=== PATIENT | male | born 1980 | race Caucasian/White ===

== ENCOUNTER 2022-05-10 02:28 | Emergency (ER) | payer MEDICAID, SELFPAY ==
--- NOTE | ~2022-05-10 | CT_ITS ---
EXAMINATION: CT ABDOMEN AND PELVIS WITHOUT CONTRAST CLINICAL INFORMATION: Left flank pain COMPARISON: None TECHNIQUE: Multidetector volumetric imaging was performed from the superior aspect of the liver through the pubic symphysis. Sagittal and coronal reformatted images were obtained on the technologist's workstation. This CT examination was performed using dose optimization techniques as appropriate, variously including the following: *Automated exposure control *Adjustment of mA and/or kV according to patient size (this includes techniques or standardized protocols for targeted exams where dose is matched to indication/reason for exam; i.e. extremities or head) *Use of iterative reconstruction technique DLP: 474 mGy-cm FINDINGS: LUNG BASES: The visualized lung bases are unremarkable. LIVER, GALLBLADDER, AND BILIARY TREE: The liver is normal in size, shape, and attenuation. No biliary ductal dilatation. 0.4 cm hypoattenuating lesion in segment 6 of the liver is too small to fully characterize. The gallbladder is unremarkable with no evidence of radiopaque gallstones, gallbladder wall thickening, or obvious pericholecystic inflammatory changes. PANCREAS: Unremarkable. SPLEEN: Unremarkable. ADRENAL GLANDS: Unremarkable. KIDNEYS AND URETERS: The kidneys are normal in size, shape, and attenuation. Mild left hydroureteronephrosis. 0.3 cm distal ureteral calculus is noted approximately 0.5 cm proximal to the left ureterovesicular junction. There is a left midpole 0.4 cm calculus which is 9 cm from the posterior axillary line. 0.2 cm right lower pole calculus is 7 cm from the posterior axillary line. BLADDER: Unremarkable. GASTROINTESTINAL TRACT: The stomach is unremarkable. Normal caliber small bowel. No obstruction. No colonic wall thickening or inflammatory change. No free air or free fluid. ABDOMINAL WALL: No significant hernia is appreciated. LYMPH NODES: Normal. VASCULAR: Unremarkable. PELVIC VISCERA: The prostate and seminal vesicles are unremarkable. OSSEOUS STRUCTURES: No acute or suspicious osseous abnormality. CT/CT abdomen pelvis wo con IMPRESSION: Mild left hydroureteronephrosis with a 0.3 cm distal ureteral obstructing calculus. Additional nonobstructing bilateral renal calculi. Fleischner guidelines were followed.
[2022-05-10 02:38] VITALS: BP 132/74; PULSE 87; O2SAT 97
[2022-05-10 02:45] VITALS: BMI 26.6
--- NOTE | 2022-05-10 02:45 | ED.BACK ---
HPI - Back Pain/Injury General Chief Complaint: Abdominal Pain Stated Complaint: LEFT FLANK PAIN Time Seen by Provider: 05/10/22 02:44 Source: patient Mode of arrival: ambulatory Limitations: no limitations History of Present Illness HPI Narrative: left flank pain for one hour. patient is jumping around from the pain Related Data Previous Rx's Medication Instructions Recorded naproxen 500 mg tablet (Naprosyn) 500 mg PO BID #20 tabs 05/10/22 tamsulosin 0.4 mg capsule (Flomax) 0.4 mg PO BEDTIME #20 caps 05/10/22 Allergies Allergy/AdvReac Type Severity Reaction Status Date / Time amoxicillin [AMOXICILLIN] Allergy Unknown ANAPHYLAXIS Verified 05/10/22 02:45 morphine [Morphine] Allergy Unknown ANAPHYLAXIS Verified 05/10/22 02:45 Amoxicillin Allergy Unknown Unknown Uncoded 05/10/22 02:45 Morphine Sulfate Allergy Unknown Unknown Uncoded 05/10/22 02:45 PMFSH Social History Social History Advance Directives: No Physical Exam Vital Signs: Vital Signs: Last Vital Signs Resp 14 05/10/22 04:06 BMI result Body Mass Index 26.6 Course Reevaluation(s) Reevaluation #1: patient resting comfortably, stone still has some more to go to pass Time: 07:10 MDM - Back Pain/Injury Lab Data Result diagrams: 05/10/22 03:07 05/10/22 03:07 Labs: Lab Results 05/10/22 05/10/22 05/10/22 Range/Units 03:07 03:07 05:18 WBC 10.0 (4.8-10.8) X10*3/uL RBC 4.95 (4.60-5.80) X10*6/uL Hgb 14.7 (14.0-18.0) g/dl Hct 43.0 (42.0-52.0) % MCV 86.9 (80.0-98.0) fL MCH 29.7 (27.0-33.0) pg MCHC 34.2 (31.0-36.0) g/dl RDW 12.1 (11.0-16.0) % Plt Count 319 (160-400) X10*3/uL MPV 10.4 (9.4-12.4) fL Immature Gran % (Auto) 0.2 (0.0-0.4) % Neut % (Auto) 43.9 L (45-73) % Lymph % (Auto) 45.6 H (20-40) % [place] % (Auto) 8.3 (2-11) % Eos % (Auto) 1.7 (0-4) % Baso % (Auto) 0.3 (0-2) % Lymph # (Auto) 4.6 (1.2-4.9) X10*3/uL [place] # (Auto) 0.8 (0.1-1.2) X10*3/uL Eos # (Auto) 0.2 (0.0-0.4) X10*3/uL Baso # (Auto) 0.0 (0.0-0.2) X10*3/uL Abs Immat Gran (auto) 0.02 (0.00-0.03) X10*3/uL Absolute Neuts (auto) 4.4 (2.0-8.3) x10*3/uL Absolute Nucleated RBC 0.000 (0.0-0.012) X10*3/uL Nucleated RBC % (auto) 0.0 (0.0-0.2) /100WBC Sodium 140 (135-145) mmol/L Potassium 3.6 (3.3-5.1) mmol/L Chloride 105 (96-108) mmol/L Carbon Dioxide 25 (22-29) mmol/L Anion Gap 14 (12-20) BUN 19 H (9-16) mg/dL Creatinine 1.37 (0.5-1.4) mg/dL Estim Creat Clear Calc 60.0 Estimated GFR 58 Random Glucose 121 H (60-115) mg/dL Calcium 9.1 (8.4-10.2) mg/dL Total Bilirubin 0.6 (0.0-1.0) mg/dL AST 19 (5-37) U/L ALT 15 (0-40) U/L Alkaline Phosphatase 45 (39-117) U/L Total Protein 7.3 (6.5-8.0) g/dL Albumin 4.5 (3.5-5.0) g/dL Lipase 54 (8-78) U/L Urine Color YELLOW Urine Appearance CLEAR Urine pH 5.5 (5.0-8.0) Ur Specific [place] >= 1.030 H (1.005-1.025) Urine Protein NEG (NEG-TRACE) MG/DL Urine Glucose (UA) NEG (NEG) MG/DL Urine Ketones NEG (NEG) MG/DL Urine Blood NEG (NEG) Urine Nitrite NEG (NEG) Ur Leukocyte Esterase NEG (NEG) Imaging Data CT scan - abdomen: Radiologist's impression: IMPRESSION: Mild left hydroureteronephrosis with a 0.3 cm distal ureteral obstructing calculus. Additional nonobstructing bilateral renal calculi.? ? Fleischner guidelines were followed. Discharge Plan Discharge Clinical Impression: Calculus of kidney, Renal colic Patient Disposition: Home, Self-Care Instructions: Kidney Stones (ED), Renal Colic (ED) Additional Instructions: strain urine for stone Prescriptions: New naproxen [Naprosyn] 500 mg tablet 500 mg PO BID Qty: 20 0RF tamsulosin [Flomax] 0.4 mg capsule 0.4 mg PO BEDTIME Qty: 20 0RF Referrals: Panchito Villagomez MD [Physician] - 1 week
[2022-05-10 03:12] LABS: Basophils Percent Auto 0.3 % (0-2); Eosinophils Absolute Auto 0.2 X10*3/uL (0.0-0.4); Eosinophils Percent Auto 1.7 % (0-4); Hemoglobin 14.7 g/dl (14.0-18.0); Imm Gran Abs Auto 0.02 X10*3/uL (0.00-0.03); Imm Gran Pct Auto 0.2 % (0.0-0.4); Lymphocytes Absolute Auto 4.6 X10*3/uL (1.2-4.9); Lymphocytes Percent Auto 45.6 % (20-40); MANUAL DIFF FLAG NO; Mean Corpuscular HGB Conc 34.2 g/dl (31.0-36.0); Mean Corpuscular Hemoglobin 29.7 pg (27.0-33.0); Mean Corpuscular Volume 86.9 fL (80.0-98.0); Mean Platelet Volume 10.4 fL (9.4-12.4); Monocytes Absolute Auto 0.8 X10*3/uL (0.1-1.2); Monocytes Percent Auto 8.3 % (2-11); Neutrophils Absolute Auto 4.4 x10*3/uL (2.0-8.3); Neutrophils Percent Auto 43.9 % (45-73); Platelet Count 319 X10*3/uL (160-400); Red Blood Count 4.95 X10*6/uL (4.60-5.80); Red Cell Distribution Width 12.1 % (11.0-16.0)
[2022-05-10] MEDS: 0.9 % Sodium Chloride 1,000 ML 999 ML IVCONT ×2 (03:18→06:41)
[2022-05-10] MEDS: Ketorolac Tromethamine 30 MG/ML VIAL IVPUSH (03:18)
[2022-05-10 03:33] LABS: Alanine Aminotransferase 15 U/L (0-40); Albumin Level 4.5 g/dL (3.5-5.0); Alkaline Phosphatase 45 U/L (39-117); Anion Gap 14 (12-20); Aspartate Amino Transferase 19 U/L (5-37); Bilirubin Total 0.6 mg/dL (0.0-1.0); Blood Urea Nitrogen 19 mg/dL (9-16); Calcium 9.1 mg/dL (8.4-10.2); Carbon Dioxide 25 mmol/L (22-29); Chloride 105 mmol/L (96-108); Estimated Glomerular Filt Rate 58; Glucose Random 121 mg/dL (60-115); Lipase 54 U/L (8-78); Potassium 3.6 mmol/L (3.3-5.1); Sodium 140 mmol/L (135-145); Total Protein 7.3 g/dL (6.5-8.0)
[2022-05-10 04:06] VITALS: RESP 14
[2022-05-10] MEDS: HYDROmorphone HCl 1 MG/ML SYRINGE IVPUSH (04:06)
[2022-05-10] MEDS: Tamsulosin HCL 0.4 MG CAPSULE PO (04:06)
[2022-05-10 05:23] LABS: Appearance Urine CLEAR; Color Urine YELLOW; Glucose Urine UA NEG (NEG); Leukocyte Esterase Urine NEG (NEG); Nitrite Urine NEG (NEG); PH 5.5 (5.0-8.0); Specific Gravity - Urine >= 1.030 (1.005-1.025); Urine Blood NEG (NEG); Urine Ketones NEG (NEG); Urine Protein NEG (NEG-TRACE)
== END 2022-05-10 07:28 | disposition home or self-care (01) ==
PROVIDERS: Emergency Provider Emergency Medicine
DX: N13.2 Hydronephrosis with renal and ureteral calculous obstruction (principal)
CPT/HCPCS: 36415; 74176; 80053; 81003; 83690; 85025; 96361; 96374; 96375; 99283; 99284; J1170; J1885

== ENCOUNTER 2022-09-07 12:18 | Emergency (ER) | payer OTHER, SELFPAY ==
[2022-09-07 12:25] VITALS: BP 126/79; PULSE 61; RESP 16; TEMP 36.1; O2SAT 98; BMI 25.7
[2022-09-07 12:41] LABS: MANUAL DIFF FLAG NO
[2022-09-07 12:43] LABS: Basophils Percent Auto 0.4 % (0-2); Eosinophils Absolute Auto 0.1 X10*3/uL (0.0-0.4); Hemoglobin 14.5 g/dl (14.0-18.0); Imm Gran Abs Auto 0.01 X10*3/uL (0.00-0.03); Imm Gran Pct Auto 0.1 % (0.0-0.4); Lymphocytes Absolute Auto 2.5 X10*3/uL (1.2-4.9); Lymphocytes Percent Auto 34.5 % (20-40); Mean Corpuscular Hemoglobin 29.2 pg (27.0-33.0); Mean Corpuscular Volume 88.5 fL (80.0-98.0); Mean Platelet Volume 10.3 fL (9.4-12.4); Monocytes Absolute Auto 0.6 X10*3/uL (0.1-1.2); Monocytes Percent Auto 7.7 % (2-11); Neutrophils Percent Auto 56.3 % (45-73); Platelet Count 276 X10*3/uL (160-400); Red Blood Count 4.97 X10*6/uL (4.60-5.80); Red Cell Distribution Width 12.3 % (11.0-16.0); White Blood Count 7.2 X10*3/uL (4.8-10.8)
[2022-09-07 13:00] LABS: Alanine Aminotransferase 24 U/L (0-40); Albumin Level 4.5 g/dL (3.5-5.0); Alkaline Phosphatase 40 U/L (39-117); Anion Gap 16 (12-20); Aspartate Amino Transferase 23 U/L (5-37); Bilirubin Direct 0.2 mg/dL (0.0-0.5); Bilirubin Total 0.2 mg/dL (0.0-1.0); Blood Urea Nitrogen 14 mg/dL (9-16); Calcium 9.4 mg/dL (8.4-10.2); Carbon Dioxide 25 mmol/L (22-29); Chloride 104 mmol/L (96-108); Creatinine Clr Calc Pharmacy 76.1; Estimated Glomerular Filt Rate > 60; Glucose Random 83 mg/dL (60-115); Sodium 141 mmol/L (135-145); Total Protein 7.3 g/dL (6.5-8.0)
--- NOTE | 2022-09-07 16:04 | ED_ITS ---
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 Reports poking patient and then accidentally poking himself, drawing blood. Admits to washing the area immediately with alcohol and soap/water. States he is up-to-date on his vaccinations. Denies fever, chills, pain Onset (ago): minute(s) Related Data Previous Rx's Medication Instructions Recorded naproxen 500 mg tablet (Naprosyn) 500 mg PO BID #20 tabs 05/10/22 tamsulosin 0.4 mg capsule (Flomax) 0.4 mg PO BEDTIME #20 caps 05/10/22 prednisone 20 mg tablet 20 mg PO DAILY 5 days #5 tabs 05/11/22 Allergies Allergy/AdvReac Type Severity Reaction Status Date / Time amoxicillin [AMOXICILLIN] Allergy Unknown ANAPHYLAXIS Verified 09/07/22 12:31 morphine [Morphine] Allergy Unknown ANAPHYLAXIS Verified 09/07/22 12:31 Amoxicillin Allergy Unknown Unknown Uncoded 05/10/22 02:45 Morphine Sulfate Allergy Unknown Unknown Uncoded 05/10/22 02:45 Review of Systems Review of Systems: Constitutional: No Fever, No Chills ENT/Mouth: No Ear Pain, No Nasal Congestion, No sore throat, No Rhinorrhea, No Swallowing Difficulty Cardiovascular: No Chest Pain, No SOB Respiratory: No Cough, No Sputum, No Wheezing Gastrointestinal: No Nausea, No Vomiting, No Diarrhea, No Constipation, No Abdominal pain Genitourinary: No Dysuria, No Urinary Frequency, No Hematuria Musculoskeletal: No joint pain, No Myalgias, No Joint Swelling Skin: No Skin Lesions, No rash Neuro: No Weakness, No Numbness, No Paresthesias Yes all other systems are reviewed and are negative Constitutional: Constitutional: Reports as per [facility] Past Medical History Attestation statement: The following information was validated with the patient. Social History Social History Advance Directives: No Physical Exam ED Vital Signs: Vital Signs - 24 hr 09/07/22 12:25 Temperature 97 F Pulse Rate 61 Respiratory Rate 16 Blood Pressure 126/79 Pulse Oximetry 98 Oxygen Delivery Method Room Air BMI result Body Mass Index 25.7 Const General: cooperative, healthy appearing and no acute distress Orientation/consciousness: patient oriented x3 Limitations: no limitations HENMT Head: Yes normal to inspection and Yes atraumatic Ears: hearing grossly normal bilaterally General nose exam: Normal external nose present Face and sinus: Yes normal facial exam Eyes General: appearance normal, both eyes and all related structures EOM: EOMs intact bilaterally Neck Neck: Yes normal visual inspection and Yes no meningeal signs Resp Effort & Inspection: normal respiratory effort and no respiratory distress Auscultation: clear to auscultation bilaterally Cardio Rate: regular rate Heart sounds: S1 normal heart sound present and S2 normal heart sound present GI Inspection: Yes normal to inspection Skin Rashes: no rashes Wounds: no wounds Neuro General: patient oriented x3, tone normal and no meningeal signs Gait exam (Neuro): Normal gait present Extrem General: Yes normal to inspection Medical Decision Making MDM Narrative Medical decision making narrative: 42yo male with no sig PMHx presenting to the ED c/o 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 On exam vital signs stable, NAD, nontoxic appearing. Unknown medical history/risk factors of patient. Will obtain labs on both patients. This patient agreeable/interested in starting PEP Plan: Labs, PEP kit Medical Records Medical records reviewed: Yes I reviewed the patient's medical records. Lab Data Lab results reviewed: Yes I reviewed the patient's lab results. Result diagrams: 09/07/22 12:38 09/07/22 12:38 Labs: Lab Results 09/07/22 09/07/22 Range/Units 12:38 12:38 WBC 7.2 (4.8-10.8) X10*3/uL RBC 4.97 (4.60-5.80) X10*6/uL Hgb 14.5 (14.0-18.0) g/dl Hct 44.0 (42.0-52.0) % MCV 88.5 (80.0-98.0) fL MCH 29.2 (27.0-33.0) pg MCHC 33.0 (31.0-36.0) g/dl RDW 12.3 (11.0-16.0) % Plt Count 276 (160-400) X10*3/uL MPV 10.3 (9.4-12.4) fL Immature Gran % (Auto) 0.1 (0.0-0.4) % Neut % (Auto) 56.3 (45-73) % Lymph % (Auto) 34.5 (20-40) % [place] % (Auto) 7.7 (2-11) % Eos % (Auto) 1.0 (0-4) % Baso % (Auto) 0.4 (0-2) % Lymph # (Auto) 2.5 (1.2-4.9) X10*3/uL [place] # (Auto) 0.6 (0.1-1.2) X10*3/uL Eos # (Auto) 0.1 (0.0-0.4) X10*3/uL Baso # (Auto) 0.0 (0.0-0.2) X10*3/uL Abs Immat Gran (auto) 0.01 (0.00-0.03) X10*3/uL Absolute Neuts (auto) 4.0 (2.0-8.3) x10*3/uL Absolute Nucleated RBC 0.000 (0.0-0.012) X10*3/uL Nucleated RBC % (auto) 0.0 (0.0-0.2) /100WBC Sodium 141 (135-145) mmol/L Potassium 4.0 (3.3-5.1) mmol/L Chloride 104 (96-108) mmol/L Carbon Dioxide 25 (22-29) mmol/L Anion Gap 16 (12-20) BUN 14 (9-16) mg/dL Creatinine 1.08 (0.5-1.4) mg/dL Estim Creat Clear Calc 76.1 Estimated GFR > 60 Random Glucose 83 (60-115) mg/dL Calcium 9.4 (8.4-10.2) mg/dL Total Bilirubin 0.2 (0.0-1.0) mg/dL Direct Bilirubin 0.2 (0.0-0.5) mg/dL AST 23 (5-37) U/L ALT 24 (0-40) U/L Alkaline Phosphatase 40 (39-117) U/L Total Protein 7.3 (6.5-8.0) g/dL Albumin 4.5 (3.5-5.0) g/dL Discharge Plan Discharge Clinical Impression: Needlestick injury accident Patient Disposition: Home, Self-Care Instructions: Needle Stick Injuries (ED) Additional Instructions: Initiate post exposure prophylaxis. This may cause some GI upset. Please have close follow-up with [facility] Prescriptions: No Action prednisone 20 mg tablet 20 mg PO DAILY 5 Days Qty: 5 0RF naproxen [Naprosyn] 500 mg tablet 500 mg PO BID Qty: 20 0RF tamsulosin [Flomax] 0.4 mg capsule 0.4 mg PO BEDTIME Qty: 20 0RF Referrals: [facility] [Outside]
[2022-09-08 07:52] LABS: HBc Num1 0.06 S/CO (0.00-0.79); HBsAGNum1 0.21 S/CO (0.00-0.99); HIV AB/AG Nonreactive (Nonreactive); HIV Num 1 0.09 S/CO (0.00-0.99); Hepatitis B Core Antibody Nonreactive (Nonreactive); Hepatitis B Surface Antigen Negative (Negative); ~HepC Num1 0.11 S/CO (0.00-0.79); ~Hepatitis B Surface Antibody REACTIVE (Nonreactive); ~Hepatitis C Antibody Nonreactive (Nonreactive)
== END 2022-09-07 17:49 | disposition home or self-care (01) ==
PROVIDERS: Physician Assistant; Emergency Provider Emergency Medicine
DX: Z20.9 Contact with and (suspected) exposure to unspecified communicable disease (principal); Z79.899 Other long term (current) drug therapy
CPT/HCPCS: 36415; 80048; 80076; 85025; 86704; 86706; 86803; 87340; 87389; 99282; 99283

== ENCOUNTER → 2022-09-08 08:43 | Outpatient (BNVA) | payer OTHER, SELFPAY | PROVIDERS: Visit Provider Physician Assistant Medical | DX: Z13.89 Encounter for screening for other disorder (principal) | CPT/HCPCS: 99203 ==

== ENCOUNTER 2022-11-08 08:55 | Outpatient (REF) | payer OTHER, SELFPAY ==
[2022-11-08 07:38] VITALS: BP 122/79; PULSE 68; RESP 18; TEMP 36.4; O2SAT 98; BMI 27.4
[2022-11-08 07:47] LABS: Influenza A PCR NEGATIVE (Negative); Influenza B PCR NEGATIVE (Negative); Resp Syncy Virus RNA Qual PCR NEGATIVE (Negative); SARS COV2 PCR INHOUSE NEGATIVE (Negative)
== END 2022-11-08 08:56 | disposition home or self-care (01) ==
LOC: HO.LAB 08:55
PROVIDERS: Visit Provider Internal Medicine
DX: Z20.822 Contact with and (suspected) exposure to COVID-19 (principal)
CPT/HCPCS: 0241U

== ENCOUNTER 2023-01-26 17:58 | Inpatient (IN) | payer MEDICAID, SELFPAY ==
--- NOTE | ~2023-01-26 | CT_ITS ---
EXAMINATION: CT ABDOMEN AND PELVIS WITHOUT CONTRAST CLINICAL INFORMATION: Bilateral flank pain. History of kidney stones COMPARISON: CT abdomen and pelvis without contrast 05/02/2022 TECHNIQUE: Multidetector volumetric imaging was performed from the superior aspect of the liver through the pubic symphysis. Sagittal and coronal reformatted images were obtained on the technologist's workstation. This CT examination was performed using dose optimization techniques as appropriate, variously including the following: *Automated exposure control *Adjustment of mA and/or kV according to patient size (this includes techniques or standardized protocols for targeted exams where dose is matched to indication/reason for exam; i.e. extremities or head) *Use of iterative reconstruction technique DLP: 446 mGy-cm FINDINGS: LUNG BASES: The lung bases are clear. Heart size is normal. LIVER, GALLBLADDER, AND BILIARY TREE: The liver is normal in size, shape, and attenuation. No focal hepatic lesion or biliary ductal dilatation is present. The gallbladder is unremarkable with no evidence of radiopaque gallstones, gallbladder wall thickening, or obvious pericholecystic inflammatory changes. PANCREAS: Unremarkable. SPLEEN: Unremarkable. ADRENAL GLANDS: Unremarkable. KIDNEYS AND URETERS: The kidneys are normal in size, shape, and attenuation. There are bilateral small radiopaque renal calculi. There is a 4 mm radiopaque calculi mid pole left kidney, the largest. No caliectasis or hydronephrosis seen BLADDER: Unremarkable. GASTROINTESTINAL TRACT: There is scattered stool and gas seen throughout the colon without distention. The small bowel loops are normal caliber. Appendix is normal caliber. However there is mild fat stranding seen surrounding the appendix the tip measuring 1.1 cm. The stomach is nondistended and appears unremarkable. ABDOMINAL WALL: No significant hernia is appreciated. LYMPH NODES: Normal. VASCULAR: Unremarkable. PELVIC VISCERA: Unremarkable. OSSEOUS STRUCTURES: There is no aggressive lytic or sclerotic process seen. The paravertebral soft tissues are normal. CT/CT abdomen pelvis wo IV con IMPRESSION: 1. Bilateral nonobstructive radiopaque renal calculi. No caliectasis or hydronephrosis seen. The largest in the midpole left kidney measuring 4 mm. 2. There is mild fat stranding seen surrounding the tip of the appendix. The tip of the appendix measures 1.1 cm. No phleboliths seen.. Question early appendicitis. Correlate with clinical exam. 3. Mild constipation. Fleischner guidelines were followed.
[2023-01-26 18:11] VITALS: BP 144/72; PULSE 75; RESP 18; TEMP 36.5; O2SAT 100; BMI 26.6
--- NOTE | 2023-01-26 18:26 | ED.ABDPAIN ---
HPI - Abdominal Pain General Chief Complaint: Abdominal Pain Stated Complaint: abdominal pain Time Seen by Provider: 01/26/23 18:21 Source: patient Mode of arrival: ambulatory Limitations: no limitations History of Present Illness HPI narrative: Patient comes to the emergency room complaining of bilateral lower quadrant pain and bilateral flank pain. Patient states that started earlier today when he was working. Patient states he has kidney stone history and it feels like he is passing stones again. Patient complaining of nausea, vomiting, no diarrhea, complaining of intense bilateral flank pain. No fever or chills. Related Data Previous Rx's Medication Instructions Recorded naproxen 500 mg tablet (Naprosyn) 500 mg PO BID #20 tabs 05/10/22 tamsulosin 0.4 mg capsule (Flomax) 0.4 mg PO BEDTIME #20 caps 05/10/22 prednisone 20 mg tablet 20 mg PO DAILY 5 days #5 tabs 05/11/22 Allergies Allergy/AdvReac Type Severity Reaction Status Date / Time amoxicillin [AMOXICILLIN] Allergy Unknown ANAPHYLAXIS Verified 09/07/22 12:31 morphine [Morphine] Allergy Unknown ANAPHYLAXIS Verified 09/07/22 12:31 Amoxicillin Allergy Unknown Unknown Uncoded 05/10/22 02:45 Morphine Sulfate Allergy Unknown Unknown Uncoded 05/10/22 02:45 Review of Systems Review of Systems Constitutional : No Weight loss, No Fever, No Chills, No Night Sweats, No Fatigue, No Malaise ENT/Mouth : No Hearing loss, No Ear Pain, No Nasal Congestion, No Sinus Pain, No Hoarseness, No sore throat, No Rhinorrhea, No Swallowing Difficulty Eyes: No Eye Pain, No Swelling, No Redness, No Foreign Body, No Discharge, No Vision Changes Cardiovascular : No Chest Pain, No SOB, No Dyspnea on Exertion, No Orthopnea, No Edema, No Palpitations Respiratory : No Cough, No Sputum, No Wheezing, No Smoke Exposure, No Dyspnea Gastrointestinal : Complaining of nausea vomiting No Diarrhea, No Constipation, No abdominal Pain, No Hematochezia, No Melena Genitourinary : no irregular bleeding, No Dysuria, No Urinary Frequency, No Hematuria, No Urinary Incontinence, No Urgency, complaining of bilateral Flank Pain, No Urinary Flow Changes, No Hesitancy Musculoskeletal : No joint pain, No Myalgias, No Joint Swelling Skin : No Skin Lesions, No rash Neuro : No Weakness, No Numbness, No Paresthesias, No Loss of Consciousness, No Dizziness, No Headache Psych : No Anxiety/Panic, No Depression, No SI/HI/AH/VH, No Social Issues, Heme/Lymph: No Bruising, No Bleeding,No Lymphadenopathy Endocrine : No Polyuria, No Polydipsia, No Temperature Intolerance [facility] Past Medical History Medical History (Updated 01/26/23 @ 20:56 by Jojo Horner MD) Kidney stones Social History Social History Alcohol intake: never Smoked in Last 30 Days: No Use of substances other than those prescribed or required for medical reasons: No Advance Directives: No Advance Directives Information Provided: No Physical Exam ED Vital Signs: Vital Signs - 24 hr 01/26/23 18:11 Temperature 97.7 F Pulse Rate 75 Respiratory Rate 18 Blood Pressure 144/72 H Pulse Oximetry 100 Oxygen Delivery Method Room Air BMI result Body Mass Index 26.6 Const Other: Appearance: Alert. Oriented X3. Prep patient of pain, pacing around the room, unable to get comfortable Eyes: Pupils equal, round and reactive to light. ENT: Pharynx normal. Neck: Normal inspection. Neck supple. No lymph nodes noted. No crepitus CVS: Normal heart rate and rhythm. Pulses normal. Normal S1 and S2 Respiratory: No respiratory distress. Breath sounds normal. No Wheezing. No rales Abdomen: Soft , tenderness to palpation mildly on the left lower quadrant but more significantly in the periumbilical area and right lower quadrant at the McBurney's point Skin: Skin warm and dry. Normal skin color. Normal skin turgor. Extremities: No lower extremity edema. No Lacerations. No Rash Neuro: Oriented X 3. No motor deficit. No sensory deficit. Moving all extremities. No slurred speech. CN 2 through 12 grossly intact Psych: calm, cooperative, normal affect Course Course Course Narrative: -patient started on IV fluids, ketorolac and Zofran. -labs and CT scan pending. -appendicitis versus nephrolithiasis suspected Medical Decision Making Medical Decision Making MDM Narrative: -patient's white blood cell count is 17. -CT scan of the abdomen shows the tip of the appendix measures 1.1 cm. Physical exam is consistent with acute appendicitis. -patient was given IV fluids, Toradol, Dilaudid, and from antibiotics patient was given metronidazole and levofloxacin as patient has anaphylactic reaction to penicillins. -discussed the patient with Dr. Carcamo, pt being admitted Differential Diagnosis Differential Diagnoses: The differential diagnosis associated with the presentation includes (Nephrolithiasis, appendicitis) Admission/Observation Consideration of admission/observation: Escalation of care including admission/observation considered Consult Healthcare Provider Management of the patient was discussed with: Ring Attacher Lab Data 01/26/23 19:33 01/26/23 19:33 Labs: Lab Results 01/26/23 01/26/23 01/26/23 Range/Units 19:33 19:33 19:33 WBC 17.0 H (4.8-10.8) X10*3/uL RBC 5.01 (4.60-5.80) X10*6/uL Hgb 14.8 (14.0-18.0) g/dl Hct 42.5 (42.0-52.0) % MCV 84.8 (80.0-98.0) fL MCH 29.5 (27.0-33.0) pg MCHC 34.8 (31.0-36.0) g/dl RDW 11.9 (11.0-16.0) % Plt Count 291 (160-400) X10*3/uL MPV 10.5 (9.4-12.4) fL Immature Gran % (Auto) 0.3 (0.0-0.4) % Neut % (Auto) 86.2 H (45-73) % Lymph % (Auto) 8.0 L (20-40) % [place] % (Auto) 5.2 (2-11) % Eos % (Auto) 0.1 (0-4) % Baso % (Auto) 0.2 (0-2) % Lymph # (Auto) 1.4 (1.2-4.9) X10*3/uL [place] # (Auto) 0.9 (0.1-1.2) X10*3/uL Eos # (Auto) 0.0 (0.0-0.4) X10*3/uL Baso # (Auto) 0.0 (0.0-0.2) X10*3/uL Abs Immat Gran (auto) 0.05 H (0.00-0.03) X10*3/uL Absolute Neuts (auto) 14.7 H (2.0-8.3) x10*3/uL Absolute Nucleated RBC 0.000 (0.0-0.012) X10*3/uL Nucleated RBC % (auto) 0.0 (0.0-0.2) /100WBC Sodium 137 (135-145) mmol/L Potassium 3.7 (3.3-5.1) mmol/L Chloride 106 (96-108) mmol/L Carbon Dioxide 21 L (22-29) mmol/L Anion Gap 14 (12-20) BUN 15 (9-16) mg/dL Creatinine 1.25 (0.5-1.4) mg/dL Estim Creat Clear Calc 67.6 Estimated GFR > 60 Random Glucose 107 (60-115) mg/dL Calcium 9.4 (8.4-10.2) mg/dL Total Bilirubin 0.8 (0.0-1.0) mg/dL Direct Bilirubin 0.2 (0.0-0.5) mg/dL AST 20 (5-37) U/L ALT 20 (0-40) U/L Alkaline Phosphatase 42 (39-117) U/L Troponin I High Sens < 3.5 (<3.5-35.0) ng/L Total Protein 6.8 (6.5-8.0) g/dL Albumin 4.3 (3.5-5.0) g/dL Lipase 24 (8-78) U/L Urine Color Urine Appearance Urine pH (5.0-9.0) Ur Specific [place] (1.005-1.025) Urine Protein (Neg-Trace) mg/dL Urine Glucose (UA) (Negative) mg/dL Urine Ketones (Negative) mg/dL Urine Blood (Negative) Urine Nitrite (Negative) Ur Leukocyte Esterase (Negative) 01/26/23 Range/Units 19:37 WBC (4.8-10.8) X10*3/uL RBC (4.60-5.80) X10*6/uL Hgb (14.0-18.0) g/dl Hct (42.0-52.0) % MCV (80.0-98.0) fL MCH (27.0-33.0) pg MCHC (31.0-36.0) g/dl RDW (11.0-16.0) % Plt Count (160-400) X10*3/uL MPV (9.4-12.4) fL Immature Gran % (Auto) (0.0-0.4) % Neut % (Auto) (45-73) % Lymph % (Auto) (20-40) % [place] % (Auto) (2-11) % Eos % (Auto) (0-4) % Baso % (Auto) (0-2) % Lymph # (Auto) (1.2-4.9) X10*3/uL [place] # (Auto) (0.1-1.2) X10*3/uL Eos # (Auto) (0.0-0.4) X10*3/uL Baso # (Auto) (0.0-0.2) X10*3/uL Abs Immat Gran (auto) (0.00-0.03) X10*3/uL Absolute Neuts (auto) (2.0-8.3) x10*3/uL Absolute Nucleated RBC (0.0-0.012) X10*3/uL Nucleated RBC % (auto) (0.0-0.2) /100WBC Sodium (135-145) mmol/L Potassium (3.3-5.1) mmol/L Chloride (96-108) mmol/L Carbon Dioxide (22-29) mmol/L Anion Gap (12-20) BUN (9-16) mg/dL Creatinine (0.5-1.4) mg/dL Estim Creat Clear Calc Estimated GFR Random Glucose (60-115) mg/dL Calcium (8.4-10.2) mg/dL Total Bilirubin (0.0-1.0) mg/dL Direct Bilirubin (0.0-0.5) mg/dL AST (5-37) U/L ALT (0-40) U/L Alkaline Phosphatase (39-117) U/L Troponin I High Sens (<3.5-35.0) ng/L Total Protein (6.5-8.0) g/dL Albumin (3.5-5.0) g/dL Lipase (8-78) U/L Urine Color Yellow Urine Appearance Clear Urine pH 8.5 (5.0-9.0) Ur Specific [place] 1.020 (1.005-1.025) Urine Protein Trace (Neg-Trace) mg/dL Urine Glucose (UA) Negative (Negative) mg/dL Urine Ketones 15 (Negative) mg/dL Urine Blood Negative (Negative) Urine Nitrite Negative (Negative) Ur Leukocyte Esterase Negative (Negative) Independent Interpretation I performed an independent interpretation of an: CT Scan Interpretation: My interpretation of abdominal/pelvis CT scan: Possible appendicitis, there seems to be inflammation around the appendix Radiology Impression Discussion of test interpretation with radiology: I have reviewed the radiologist's reading. Radiologist Impression: FINDINGS: LUNG BASES: The lung bases are clear. Heart size is normal.? LIVER, GALLBLADDER, AND BILIARY TREE: The liver is normal in size, shape, and attenuation. No focal hepatic lesion or biliary ductal dilatation is present. The gallbladder is unremarkable with no evidence of radiopaque gallstones, gallbladder wall thickening, or obvious pericholecystic inflammatory changes.? PANCREAS: Unremarkable.? SPLEEN: Unremarkable.? ADRENAL GLANDS: Unremarkable.? KIDNEYS AND URETERS: The kidneys are normal in size, shape, and attenuation. There are bilateral small radiopaque renal calculi. There is a 4 mm radiopaque calculi mid pole left kidney, the largest. No caliectasis or hydronephrosis seen? BLADDER: Unremarkable.? GASTROINTESTINAL TRACT: There is scattered stool and gas seen throughout the colon without distention. The small bowel loops are normal caliber. Appendix is normal caliber. However there is mild fat stranding seen surrounding the appendix the tip measuring 1.1 cm. The stomach is nondistended and appears unremarkable.? ABDOMINAL WALL: No significant hernia is appreciated.? LYMPH NODES: Normal. VASCULAR: Unremarkable. PELVIC VISCERA: Unremarkable.? OSSEOUS STRUCTURES: There is no aggressive lytic or sclerotic process seen. The paravertebral soft tissues are normal.? CT/CT abdomen pelvis wo IV con IMPRESSION: 1.? Bilateral nonobstructive radiopaque renal calculi. No caliectasis or hydronephrosis seen. The largest in the midpole left kidney measuring 4 mm. 2.? There is mild fat stranding seen surrounding the tip of the appendix. The tip of the appendix measures 1.1 cm. No phleboliths seen.. Question early appendicitis. Correlate with clinical exam. 3.? Mild constipation. ? Fleischner guidelines were followed. Medications Administered Discontinued Medications Generic Name Dose Route Start Last Admin Trade Name Freq PRN Reason Stop Dose Admin Hydromorphone HCl 1 mg 01/26/23 19:29 01/26/23 19:35 Hydromorphone Hcl 1 Mg/Ml Syringe IVPUSH 01/26/23 19:30 1 mg ONCE ONE Administration Protocol Sodium Chloride 1,000 mls @ 999 mls/hr 01/26/23 18:24 01/26/23 20:51 Ns IVCONT 01/26/23 19:24 Infused .Q1H1M ONE Infusion Ketorolac Tromethamine 30 mg 01/26/23 18:24 01/26/23 18:29 Ketorolac Tromethamine 30 Mg/Ml Vial IVPUSH 01/26/23 18:25 30 mg ONCE ONE Administration Ondansetron HCl 4 mg 01/26/23 18:24 01/26/23 18:29 Ondansetron Hcl 4 Mg/2 Ml Vial IVPUSH 01/26/23 18:25 4 mg ONCE ONE Administration Critical Care Time Critical Care Time Critical Care Time: Yes Total Critical Care Time: 45 Attestation: I have personally provided critical care time. Time includes review of lab data, radiology results, discussion with consultants, and monitoring for potential decompensation. Intervention performed as documented. Discharge Plan Discharge Clinical Impression: Acute appendicitis Patient Disposition: Admitted As Inpatient
[2023-01-26] MEDS: ondansetron HCL 4 MG/2 ML VIAL IVPUSH (18:29)
[2023-01-26] MEDS: Ketorolac Tromethamine 30 MG/ML VIAL IVPUSH ×2 (18:29→23:34)
[2023-01-26] MEDS: 0.9 % Sodium Chloride 1,000 ML 999 ML IVCONT (18:30)
--- NOTE | 2023-01-26 18:31 | PC.NURSE ---
Patient is 10/10 pain that started this afternoon while patient was at work. Patient curled in a ball with emesis bag. Provider made aware of situation and orders for fluids and medications obtained.
[2023-01-26] MEDS: HYDROmorphone HCl 1 MG/ML SYRINGE IVPUSH (19:35)
[2023-01-26 19:42] LABS: MANUAL DIFF FLAG NO
[2023-01-26 19:44] LABS: Appearance Urine Clear; Color Urine Yellow; Glucose Urine UA Negative (Negative); Leukocyte Esterase Urine Negative (Negative); Nitrite Urine Negative (Negative); PH 8.5 (5.0-9.0); Urine Blood Negative (Negative); Urine Ketones 15 mg/dL (Negative); Urine Protein Trace mg/dL (Neg-Trace)
[2023-01-26 19:44] LABS: Basophils Percent Auto 0.2 % (0-2); Eosinophils Percent Auto 0.1 % (0-4); Hematocrit 42.5 % (42.0-52.0); Hemoglobin 14.8 g/dl (14.0-18.0); Imm Gran Abs Auto 0.05 X10*3/uL (0.00-0.03); Imm Gran Pct Auto 0.3 % (0.0-0.4); Lymphocytes Absolute Auto 1.4 X10*3/uL (1.2-4.9); Mean Corpuscular HGB Conc 34.8 g/dl (31.0-36.0); Mean Corpuscular Hemoglobin 29.5 pg (27.0-33.0); Mean Corpuscular Volume 84.8 fL (80.0-98.0); Mean Platelet Volume 10.5 fL (9.4-12.4); Monocytes Absolute Auto 0.9 X10*3/uL (0.1-1.2); Monocytes Percent Auto 5.2 % (2-11); Neutrophils Absolute Auto 14.7 x10*3/uL (2.0-8.3); Neutrophils Percent Auto 86.2 % (45-73); Platelet Count 291 X10*3/uL (160-400); Red Blood Count 5.01 X10*6/uL (4.60-5.80); Red Cell Distribution Width 11.9 % (11.0-16.0)
[2023-01-26 20:05] LABS: Alanine Aminotransferase 20 U/L (0-40); Albumin Level 4.3 g/dL (3.5-5.0); Alkaline Phosphatase 42 U/L (39-117); Anion Gap 14 (12-20); Aspartate Amino Transferase 20 U/L (5-37); Bilirubin Direct 0.2 mg/dL (0.0-0.5); Bilirubin Total 0.8 mg/dL (0.0-1.0); Blood Urea Nitrogen 15 mg/dL (9-16); Calcium 9.4 mg/dL (8.4-10.2); Carbon Dioxide 21 mmol/L (22-29); Chloride 106 mmol/L (96-108); Creatinine Clr Calc Pharmacy 67.6; Estimated Glomerular Filt Rate > 60; Glucose Random 107 mg/dL (60-115); Lipase 24 U/L (8-78); Potassium 3.7 mmol/L (3.3-5.1); Sodium 137 mmol/L (135-145); Total Protein 6.8 g/dL (6.5-8.0)
[2023-01-26 20:21] LABS: Troponin-I High Sensitivity < 3.5 ng/L (<3.5-35.0)
[2023-01-26] MEDS: levoFLOXacin/D5W 500 MG/100 ML PIGGYBACK 100 MG IV (21:18)
[2023-01-26 21:32] VITALS: BP 100/55; PULSE 70; RESP 16; TEMP 36.7; O2SAT 94
--- NOTE | 2023-01-26 21:36 | PHA.MEDREC ---
Pharmacy Consult ? Medication Reconciliation Pharmacy has completed the medication reconciliation.
[2023-01-26] MEDS: metroNIDAZOLE/NS 500 MG/100 ML PIGGYBACK 100 MG IV (22:01)
--- NOTE | 2023-01-26 22:40 | MHC.CM.PN ---
CM met with admitted patient with bed assignment pending. Independent. Employed [employer] [facility] [place]. Lives w S.O/children. No DME/services. No PCP. HCP reviewed, completed and signed. Copies given. Uploaded into [employer] and [employer] [facility] [place] [employer]. HCP/S.O Tod Gonzales ([phone]). D/C plan: Home without services. Pt to arrange transport. CM will follow for discharge needs.
[2023-01-26] MEDS: Dextrose 5 % and 0.9 % NaCl 1,000 ML 100 ML IVCONT (23:35)
[2023-01-27] VITALS (11 sets, daily range): BP systolic 96–131; BP diastolic 57–74; PULSE 58–75; RESP 14–20; TEMP 36.3–37.1; O2SAT 90–100; BMI 28.7
[2023-01-27 00:14] LABS: COVID-19 Test Negative (Negative); IDNOW Serial# 55D5AD1C
--- NOTE | 2023-01-27 00:52 | PC.NURSE ---
attempted to call report to medical cost consultant x 1 @00:53
--- NOTE | 2023-01-27 01:16 | PC.NURSE ---
report called to medical and health services manager
--- NOTE | 2023-01-27 02:09 | MHC.PIE ---
p; pt coming from ed with early appendicitis and 4mm lt kidney stone mid pole. ed reported dilaudid 1 mg iv for pain with great result. note; pt has prn toladole q6 given in ed at 2330, no dilaudid ordered prn. note; pt has no diet ordered NPO? i; dr fritz notified; hold off on narcotics until formally examined in morning. new order diet NPO p; pt arrived from ed, abd/flank pain 7/10 and getting worst. i; dr fritz notified numerous times. new order dilaudid 1mg iv now e; will cont to monitor
[2023-01-27] MEDS: HYDROmorphone HCl 1 MG/ML SYRINGE IVPUSH (02:23)
[2023-01-27 06:28] LABS: MANUAL DIFF FLAG NO
[2023-01-27 06:36] LABS: Basophils Percent Auto 0.2 % (0-2); Eosinophils Absolute Auto 0.1 X10*3/uL (0.0-0.4); Eosinophils Percent Auto 0.5 % (0-4); Hematocrit 39.6 % (42.0-52.0); Hemoglobin 13.1 g/dl (14.0-18.0); Imm Gran Abs Auto 0.03 X10*3/uL (0.00-0.03); Imm Gran Pct Auto 0.3 % (0.0-0.4); Lymphocytes Absolute Auto 2.5 X10*3/uL (1.2-4.9); Mean Corpuscular HGB Conc 33.1 g/dl (31.0-36.0); Mean Corpuscular Hemoglobin 29.4 pg (27.0-33.0); Mean Corpuscular Volume 88.8 fL (80.0-98.0); Mean Platelet Volume 11.1 fL (9.4-12.4); Monocytes Absolute Auto 0.9 X10*3/uL (0.1-1.2); Monocytes Percent Auto 9.4 % (2-11); Neutrophils Absolute Auto 6.4 x10*3/uL (2.0-8.3); Neutrophils Percent Auto 64.6 % (45-73); Platelet Count 237 X10*3/uL (160-400); Red Blood Count 4.46 X10*6/uL (4.60-5.80); Red Cell Distribution Width 12.2 % (11.0-16.0); White Blood Count 9.9 X10*3/uL (4.8-10.8)
[2023-01-27 06:56] LABS: Blood Urea Nitrogen 13 mg/dL (9-16); Calcium 8.5 mg/dL (8.4-10.2); Creatinine Clr Calc Pharmacy 82.2; Estimated Glomerular Filt Rate > 60; Glucose Random 90 mg/dL (60-115)
[2023-01-27 07:11] LABS: Anion Gap 11 (12-20); Carbon Dioxide 27 mmol/L (22-29); Chloride 105 mmol/L (96-108); Potassium 4.1 mmol/L (3.3-5.1); Sodium 139 mmol/L (135-145)
[2023-01-27] MEDS: Ketorolac Tromethamine 30 MG/ML VIAL IVPUSH (07:35)
--- NOTE | 2023-01-27 08:34 | PM.HPGS ---
History of Present Illness History of Present Illness Date of Service: 01/27/23 Chief complaint: Abdominal pain Narrative: Dar Moore is a 43 year old male Who presents with approximately 1 day history of progressively worsening abdominal pain. Is rather nonspecific in nature involving bilateral flanks and lower abdomen. Patient has a history of kidney stones initially felt that his symptoms were a recurrence of the kidney stones. Patient had a CT scan of the abdomen which demonstrated cholelithiasis and a question of early appendicitis. Because of the unclear nature of the patient's symptoms, he was admitted and observed. Chart was reviewed patient evaluated. On exam today, patient has localized right lower quadrant tenderness and rebound. No evidence of diffuse peritonitis. [facility] Past Medical History Medical History (Updated 01/26/23 @ 20:56 by Jojo Horner MD) Kidney stones Social History Social History Household Members: Spouse Housing: Apartment Do you presently have visiting nurse or other home services: No Alcohol intake: never Patient Tobacco Use Status: Never used Tobacco Smoked in Last 30 Days: No Use of substances other than those prescribed or required for medical reasons: No Currently Displaying Signs/Symptoms of Drug Intoxication Withdrawal: No Have you been hit, kicked, punched, or otherwise hurt by someone within the past year? If so, by whom?: No Do you feel safe in your current relationship?: Yes Is there a partner from a previous relationship who is making you feel unsafe now?: No Are you made to feel afraid or neglected: No Advance Directives: No Advance Directives Information Provided: No Do you have thoughts of harming others: None Do you have a plan to hurt others: No Plan Nutrition Risks: No Nutritional Risk Poor oral hygiene: No service: No Current occupational status: employed Meds Allergies Allergy/AdvReac Type Severity Reaction Status Date / Time amoxicillin [AMOXICILLIN] Allergy Unknown ANAPHYLAXIS Verified 09/07/22 12:31 morphine [Morphine] Allergy Unknown ANAPHYLAXIS Verified 09/07/22 12:31 Amoxicillin Allergy Unknown Unknown Uncoded 05/10/22 02:45 Morphine Sulfate Allergy Unknown Unknown Uncoded 05/10/22 02:45 Active Medications: Current Medications Dextrose/Sodium Chloride (D5ns) 1,000 mls @ 100 mls/hr IVCONT .Q10H JESSICA Last Admin: 01/27/23 05:09 Dose: Not Given Metronidazole (Flagyl) 500 mg in 100 mls @ 100 mls/hr IV ONCE ONE Stop: 01/27/23 09:03 Gentamicin Sulfate 140 mg/ (Sodium Chloride) 103.5 mls @ 100 mls/hr IV PREOP ONE Stop: 01/27/23 09:47 Ketorolac Tromethamine (Ketorolac Tromethamine 30 Mg/Ml Vial) 30 mg IVPUSH Q6H PRN PRN Reason: Pain, Mild (Pain Scale 1-3) Stop: 01/31/23 21:18 Last Admin: 01/27/23 07:35 Dose: 30 mg Pharmacy Consult (Consult Rx Perform Med Rec) 1 each MISCELLANE ONCE PRN PRN Reason: Consult order Sodium Chloride (0.9 % Sodium Chloride Flush 3 Ml Syringe) 3 ml IVFLUSH QSHIFT [facility] Last Admin: 01/27/23 00:02 Dose: Not Given Home Medications Medication Instructions Recorded Confirmed Last Taken Type No Known Home Meds 01/26/23 01/26/23 Unknown History Physical Exam Vital Signs: Vital Signs: Last Vital Signs Temp 97.9 F 01/27/23 08:00 Pulse 61 01/27/23 08:00 Resp 17 01/27/23 08:00 BP 109/63 01/27/23 08:00 Pulse Ox 100 01/27/23 08:00 O2 Del Method 01/27/23 08:00 BMI result Body Mass Index 28.7 Results Results Labs: Short CBC 01/26/23 01/27/23 Range/Units 19:33 05:34 WBC 17.0 H 9.9 (4.8-10.8) X10*3/uL Hgb 14.8 13.1 L (14.0-18.0) g/dl Hct 42.5 39.6 L (42.0-52.0) % Plt Count 291 237 (160-400) X10*3/uL BMP 01/26/23 01/27/23 19:33 05:34 Sodium 137 139 Potassium 3.7 4.1 Chloride 106 105 Carbon Dioxide 21 L 27 BUN 15 13 Creatinine 1.25 1.14 Calcium 9.4 8.5 D Liver Function 01/26/23 Range/Units 19:33 Total Bilirubin 0.8 (0.0-1.0) mg/dL Direct Bilirubin 0.2 (0.0-0.5) mg/dL AST 20 (5-37) U/L ALT 20 (0-40) U/L Alkaline Phosphatase 42 (39-117) U/L Albumin 4.3 (3.5-5.0) g/dL Urine 01/26/23 Range/Units 19:37 Urine Color Yellow Urine Appearance Clear Urine pH 8.5 (5.0-9.0) Ur Specific [place] 1.020 (1.005-1.025) Urine Protein Trace (Neg-Trace) mg/dL Urine Glucose (UA) Negative (Negative) mg/dL Assessment and Plan (1) Acute appendicitis: Status: Acute Plan because of localized symptoms, consistent with acute appendicitis, patient is to have a laparoscopic possible open cholecystectomy. Risks, benefits, and alternatives to the procedure were reviewed with the patient and included but not limited to bleeding, infection, recurrence, numbness, pain, scarring, bowel injury and the patient wish to proceed. Arrangements will be made for this for this morning. Time Spent With Patient Time: Total time managing care of this patient today ____ minutes. Quality Stroke Does the patient have a stroke diagnosis?: No VTE Prior VTE?: No VTE Risk Level:: Surgical - low VTE Device Contraindication: N/A - Device Ordered VTE Drug Contraindication: N/A - Med Ordered Procedures Date of Service Date of Service: 01/27/23
[2023-01-27] MEDS: Acetaminophen 1,000 MG/100 ML PIGGYBACK 400 MG IV (11:45)
--- NOTE | 2023-01-27 11:49 | W.PM.OPN ---
Operative Note Operative Note Date of Service: 01/27/23 Narrative: Preoperative diagnosis: [] acute appendicitis Postop diagnosis: [] same Surgeon: [] Carlos Alberto Rag Cutting Machine Operator: [] Doreen Type of Anesthesia: general Indication for surgery: [] progressively worsening right lower quadrant pain. CT scan consistent with early acute appendicitis. abdominal exam shows increasing right lower quadrant pain with localized tenderness. Findings: [] edematous inflamed appendix with no evidence of perforation Procedure: [] patient was the operating theater, placed on the operating table supine position, and after an adequate level of general anesthesia was induced, the patient's abdomen was prepped and draped in usual sterile fashion. Barrow catheter is placed under sterile technique. Next a supraumbilical curvilinear incision was made and carried down through skin, subcutaneous tissue, and Goldstein technique was used to infiltrated abdominal cavity to 15 mm of CO2. Lower midline and suprapubic ports were placed under direct laparoscopic view, the patient placed in Trendelenburg position, tilted to the left. Findings were as noted above. the appendix was grasped using laparoscopic graspers and retracted onto the field. the appendiceal mesentery was double fired and transected using cautery device. Appendix was then transected at the cecal base using endoscopic MEHUL stapler. Specimen was placed in an Endo-Catch bag, and retrieved through the umbilical port. The abdominal cavity was copiously irrigated, and secured hemostasis. All ports removed under direct laparoscopic view. Wounds were closed in the following manner; umbilical wound has fascia reapproximated using interrupted 0 Vicryl sutures. All skin wounds were closed using subcuticular 4-0 Vicryl sutures followed by Steri-Strips and sterile dressings. Wounds were infiltrated with 1% lidocaine/ 0.5% Marcaine local anesthesia. Steri-Strips and sterile dressings were applied. Sponge, needle, and instrument counts were reported to be correct. Patient tolerated the procedure well emerge from anesthesia stable condition. EBL none
[2023-01-27] MEDS: HYDROmorphone HCl 2 MG TABLET PO (12:16)
--- NOTE | 2023-01-27 13:49 | P.DS_ITS ---
DS: Providers Provider Date of Service: 01/27/23 Date of admission: 01/26/23 21:14 Date of discharge: 01/27/23 Primary care physician: None Physician Attending physician on admission: Jaret Carcamo Consults: 01/26/23 20:50 Consult to General Surgery Stat Consulting Provider[place] [facility] Reason for consultation: appendicitis Attending physician on discharge: Jaret Carcamo DS: Diagnosis Discharge Diagnosis (1) Acute appendicitis: Status: Acute DS: Summary Hospital Course Hospital Course: HPI AT ADMISSION: Dar Moore is a 43 year old male Who presents with approximately 1 day history of progressively worsening abdominal pain. Is rather nonspecific in nature involving bilateral flanks and lower abdomen. Patient has a history of kidney stones initially felt that his symptoms were a recurrence of the kidney stones. Patient had a CT scan of the abdomen which demonstrated cholelithiasis and a question of early appendicitis. HOSPITAL COURSE: The patient was admitted to the surgical service for observation. He had localized right lower quadrant tenderness and rebound and because of localized symptoms, consistent with acute appendicitis, it was recommended to proceed with a laparoscopic possible open appendectomy. He agrees and was added onto the OR schedule. On 01/27/23, a laparoscopic appendectomy was performed by Dr. Carcamo without complication. The patient tolerated the procedure well and was transferred back to the medical/surgical floor. He was reevaluated later in the day and was t olerating a solid diet without nausea/vomiting, pain was well controlled on oral analgesics and he was ambulating without difficulty. He felt ready for discharge to home. He was discharged on 01/27/23 in stable condition. He can follow up in office with Dr. Carcamo in 1 week. Status at Discharge Functional status at discharge: independent ambulation Overall status at discharge: patient is progressing back to baseline Time Spent with Patient Time attestation: Total time managing care of this patient today ____ minutes. Discharge coordination time: Less than 30 minutes Quality: Safe Use of Opioids Does Pt have an Active Cancer Diagnosis on the Problem List?: No Quality: Stroke Does the patient have a stroke diagnosis?: No Physical Exam Vital Signs: Vital Signs: Last Vital Signs Temp 97.8 F 01/27/23 12:24 Pulse 64 01/27/23 12:24 Resp 20 01/27/23 12:24 BP 131/68 01/27/23 12:24 Pulse Ox 100 03/17/23 12:24 O2 Del Method 01/27/23 12:24 O2 Flow Rate 3 01/27/23 11:40 BMI result Body Mass Index 28.7 Const: General: comfortable, no acute distress and alert Resp: Effort & Inspection: normal respiratory effort GI: Inspection: No distended and Yes incision (dressings c/d/i) Palpation (GI): Soft to palpation, Tenderness to palpation present (GI) (mild incisional), no guarding and not rigid Percussion: Yes normal to percussion Skin: General skin exam: no rashes or lesions noted DS: Data Data Completed and Pending Pending studies at discharge: Pending at discharge 01/27/23 11:09 Surgical [PTH] Routine Labs on day of discharge: Laboratory Results - last 24 hr 01/26/23 01/26/23 01/26/23 19:33 19:33 19:33 WBC 17.0 H RBC 5.01 Hgb 14.8 Hct 42.5 MCV 84.8 MCH 29.5 MCHC 34.8 RDW 11.9 Plt Count 291 MPV 10.5 Immature Gran % (Auto) 0.3 Neut % (Auto) 86.2 H Lymph % (Auto) 8.0 L [place] % (Auto) 5.2 Eos % (Auto) 0.1 Baso % (Auto) 0.2 Lymph # (Auto) 1.4 [place] # (Auto) 0.9 Eos # (Auto) 0.0 Baso # (Auto) 0.0 Abs Immat Gran (auto) 0.05 H Absolute Neuts (auto) 14.7 H Absolute Nucleated RBC 0.000 Nucleated RBC % (auto) 0.0 Sodium 137 Potassium 3.7 Chloride 106 Carbon Dioxide 21 L Anion Gap 14 BUN 15 Creatinine 1.25 Estim Creat Clear Calc 67.6 Estimated GFR > 60 Random Glucose 107 Calcium 9.4 Total Bilirubin 0.8 Direct Bilirubin 0.2 AST 20 ALT 20 Alkaline Phosphatase 42 Troponin I High Sens < 3.5 Total Protein 6.8 Albumin 4.3 Lipase 24 Urine Color Urine Appearance Urine pH Ur Specific [place] Urine Protein Urine Glucose (UA) Urine Ketones Urine Blood Urine Nitrite Ur Leukocyte Esterase COVID-19 (PAULINE) COVID-19 Clin Com 01/26/23 01/26/23 01/27/23 19:37 23:45 05:34 WBC 9.9 RBC 4.46 L Hgb 13.1 L Hct 39.6 L MCV 88.8 MCH 29.4 MCHC 33.1 RDW 12.2 Plt Count 237 MPV 11.1 Immature Gran % (Auto) 0.3 Neut % (Auto) 64.6 Lymph % (Auto) 25.0 [place] % (Auto) 9.4 Eos % (Auto) 0.5 Baso % (Auto) 0.2 Lymph # (Auto) 2.5 [place] # (Auto) 0.9 Eos # (Auto) 0.1 Baso # (Auto) 0.0 Abs Immat Gran (auto) 0.03 Absolute Neuts (auto) 6.4 Absolute Nucleated RBC 0.000 Nucleated RBC % (auto) 0.0 Sodium Potassium Chloride Carbon Dioxide Anion Gap BUN Creatinine Estim Creat Clear Calc Estimated GFR Random Glucose Calcium Total Bilirubin Direct Bilirubin AST ALT Alkaline Phosphatase Troponin I High Sens Total Protein Albumin Lipase Urine Color Yellow Urine Appearance Clear Urine pH 8.5 Ur Specific [place] 1.020 Urine Protein Trace Urine Glucose (UA) Negative Urine Ketones 15 Urine Blood Negative Urine Nitrite Negative Ur Leukocyte Esterase Negative COVID-19 (PAULINE) Negative COVID-19 Clin Com See Note 01/27/23 05:34 WBC RBC Hgb Hct MCV MCH MCHC RDW Plt Count MPV Immature Gran % (Auto) Neut % (Auto) Lymph % (Auto) [place] % (Auto) Eos % (Auto) Baso % (Auto) Lymph # (Auto) [place] # (Auto) Eos # (Auto) Baso # (Auto) Abs Immat Gran (auto) Absolute Neuts (auto) Absolute Nucleated RBC Nucleated RBC % (auto) Sodium 139 Potassium 4.1 Chloride 105 Carbon Dioxide 27 Anion Gap 11 L BUN 13 Creatinine 1.14 Estim Creat Clear Calc 82.2 Estimated GFR > 60 Random Glucose 90 Calcium 8.5 D Total Bilirubin Direct Bilirubin AST ALT Alkaline Phosphatase Troponin I High Sens Total Protein Albumin Lipase Urine Color Urine Appearance Urine pH Ur Specific [place] Urine Protein Urine Glucose (UA) Urine Ketones Urine Blood Urine Nitrite Ur Leukocyte Esterase COVID-19 (PAULINE) COVID-19 Clin Com Discharge Plan Discharge Anticipated Discharge Date/Time: 01/27/23 15:32 Patient Disposition: Home, Self-Care Discharge Diagnosis: s/p laparoscopic appendectomy Referrals: Physician,None [Primary Care Provider] - 1 Week Jaret Carcamo MD [Physician] - 1 Week Discharge Medications: New hydromorphone [Dilaudid] 2 mg tablet 2 mg PO Q4H PRN (Reason: pain (scale score 7-10)) Qty: 20 0RF Rx Instructions: Partial Fill upon patient request. Discharge Orders: Discharge Order (Routine); Ordered 01/27/23 Ordered By: Barbi Logan Diet: Advance to usual diet Activity on Discharge: No heavy lifting Stand Alone Forms: Patient Portal Discharge page, Work/School Release Activity Restrictions/Additional Instructions: Apply an ice pack for short intervals (20 minutes on, followed by at least 20 minutes off) for the first 2 days. Do not apply heat. Do not use creams, lotions, or topical antibiotics. These can cause infection or allergic reaction. Ok to shower 48 hours after your surgery. Remove dressings in 2 days and replace as needed. You have steri strips (small white cloth strips) covering your incision- these will fall off ~1 week. Follow up in office with Dr. Carcamo in 1 week. ([phone]) No heavy lifting (>10lbs) or strenuous activity! Call Your Doctor If: -Your temperature exceeds 101.5? F -You experience excessive pain or swelling -You have an unexpected reaction to medication -You have excessive bleeding -You experience continued vomiting/nausea -Your incision begins to separate -Your incision shows signs of infection such as increased redness, swell ing, excessive pain, drainage (light blood or clear fluid is normal) or heat Care Plan Goals: Return to baseline health and resume normal activities following recovery period. Health Concerns: Acute appendicitis Plan of Treatment: S/p laparoscopic appendectomy F/u in office in 1 week Assessment: Doing well post op
[2023-01-27] MEDS: Acetaminophen 325 MG TABLET 650 MG PO (14:19)
== END 2023-01-27 15:42 | disposition home or self-care (01) | DRG 234 ==
LOC: HO.ED 20:56 → HO.EDOVER 21:29 → HO.S3 01-27 00:46
PROVIDERS: Admitting Provider Surgery; Emergency Provider Emergency Medicine; Visit Provider Surgery
PROC: 0DTJ4ZZ Resection of Appendix, Percutaneous Endoscopic Approach (ICD-10-PCS; CPT 44970; principal; 2023-01-27 09:50)
DX: K35.80 Unspecified acute appendicitis (principal); Z20.822 Contact with and (suspected) exposure to COVID-19; Z88.0 Allergy status to penicillin; Z88.5 Allergy status to narcotic agent
CPT/HCPCS: 44970; 36415; 74176; 80048; 80076; 81003; 83690; 84484; 85025; 87040; 87635; 88304; 99221; 99285; J0131; J1170; J1885; J1956; J2250; J2405; J2795; J3010

== ENCOUNTER → 2023-02-03 09:19 | Outpatient (BNVA) | payer MEDICAID, SELFPAY | PROVIDERS: PCP Internal Medicine; Visit Provider Surgery | DX: Z48.815 Encounter for surgical aftercare following surgery on the digestive system (principal); Z98.890 Other specified postprocedural states | CPT/HCPCS: 99212 ==

== ENCOUNTER 2024-03-20 18:07 | Emergency (ER) | payer OTHER, SELFPAY ==
[2024-03-20 18:09] VITALS: BP 140/92; PULSE 62; RESP 20; TEMP 37; O2SAT 100; BMI 27.5
[2024-03-20 19:07] LABS: MANUAL DIFF FLAG NO
[2024-03-20 19:08] LABS: Basophils Percent Auto 0.4 % (0-2); Eosinophils Absolute Auto 0.1 X10*3/uL (0.0-0.4); Hematocrit 44.2 % (42.0-52.0); Imm Gran Abs Auto 0.02 X10*3/uL (0.00-0.03); Imm Gran Pct Auto 0.3 % (0.0-0.4); Lymphocytes Absolute Auto 2.9 X10*3/uL (1.2-4.9); Lymphocytes Percent Auto 37.1 % (20-40); Mean Corpuscular HGB Conc 33.9 g/dl (31.0-36.0); Mean Corpuscular Volume 88.4 fL (80.0-98.0); Mean Platelet Volume 10.2 fL (9.4-12.4); Monocytes Absolute Auto 0.5 X10*3/uL (0.1-1.2); Monocytes Percent Auto 6.5 % (2-11); Neutrophils Absolute Auto 4.2 x10*3/uL (2.0-8.3); Neutrophils Percent Auto 54.7 % (45-73); Platelet Count 299 X10*3/uL (160-400); Red Cell Distribution Width 12.2 % (11.0-16.0); White Blood Count 7.7 X10*3/uL (4.8-10.8)
--- NOTE | 2024-03-20 19:11 | ED.MEDCLEAR ---
HPI - Medical Clearance General Chief complaint: Body Fluid Exposure Stated complaint: needle stick Time Seen by Provider: 03/20/24 18:13 Source: patient Mode of arrival: ambulatory Limitations: no limitations History of Present Illness HPI Narrative: Patient is a 44-year-old male being evaluated for evaluation of Accidental needle stick injury to left hand at the interspace between thumb and left index finger. 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 Related Information Allergies Allergy/AdvReac Type Severity Reaction Status Date / Time amoxicillin [AMOXICILLIN] Allergy Unknown ANAPHYLAXIS Verified 03/20/24 18:12 morphine [Morphine] Allergy Unknown ANAPHYLAXIS Verified 03/20/24 18:12 Amoxicillin Allergy Unknown Unknown Uncoded 02/03/23 09:33 Morphine Sulfate Allergy Unknown Unknown Uncoded 02/03/23 09:33 Review of Systems Review of Systems: Yes all other systems are reviewed and are negative PMFSH Past Medical History Attestation statement: The following information was validated with the patient. Source: old records reviewed Medical History Kidney stones Social History Social History Household Members: Spouse Housing: Apartment Do you presently have visiting nurse or other home services: No Alcohol intake: never Patient Tobacco Use Status: Never used Tobacco Use of substances other than those prescribed or required for medical reasons: No Advance Directives: No Advance Directives Information Provided: No Do you have a plan to hurt others: No Plan service: No Current occupational status: employed Physical Exam Vital Signs: Vital Signs: Last Vital Signs Temp 98.4 F 03/20/24 21:21 Pulse 69 03/20/24 21:21 Resp 20 03/20/24 21:21 BP 125/80 03/20/24 21:21 Pulse Ox 99 03/20/24 21:21 O2 Del Method Room Air 03/20/24 21:21 BMI result Body Mass Index 27.5 Appearance: Alert.?Oriented to person, place and time. No acute distress.?Normal affect. Neck: Normal inspection.? Neck supple.?? CVS: Heart sounds normal. Normal heart rate and rhythm.? Pulses normal.?? Respiratory: No respiratory distress.? Lung sounds clear to auscultation bilaterally?? Abdomen: Soft and non-tender. Normoactive bowel sounds. ? Skin: Skin warm and dry.? Normal skin color.? Puncture wound to dorsum of the left hand in the interdigital space between the thumb and the index finger Extremities: No lower extremity edema.? Neuro: Moves all extremities spontaneously. Sensation intact bilaterally. Ambulates with normal steady gait. Medications Administered Discontinued Medications Generic Name Dose Route Start Last Admin Trade Name Marizol PRN Reason Stop Dose Admin Raltegravir/Emtricitabine/Tenofovir 1 kit 03/20/24 20:16 03/20/24 20:48 Post Exposure Medication Kit PO 03/20/24 20:17 1 kit ONCE ONE Administration Medical Decision Making Medical Decision Making [facility] Narrative: Patient is a 44-year-old male presenting to emergency department for evaluation treatment upper accidental needlestick injury, he denies any known past medical history of HIV or hepatitis.. At the time injury occurred, HIV/hepatitis status exposure source is unknown. We had a lengthy discussion about the likelihood of esthela HIV/hepatitis accidental needlestick injury, 0. He feels strongly about receiving HIV pep which I feel is reasonable. CBC and CMP are unremarkable. Sent serologies for HIV and hepatitis testing. He was discharged home with post exposure kit for PEP. Recommended outpatient follow-up with work connection for further evaluation and treatment. HIV status of source was nonreactive, in the event replace that exposure source has had recent contact without seroconversion at this time, would be very unlikely that he would act HIV under these circumstances, this was discussed, however elects to take PEP at this time, exposure source hepatitis panel pending. Differential Diagnosis Differential Diagnoses: The differential diagnosis associated with the presentation includes (See narrative above) Lab Data [facility] Lab Attestation statement: I reviewed the patient's lab results. (See narrative above) 03/20/24 Unknown 03/20/24 Unknown Labs: Lab Results 03/20/24 Range/Units Unknown WBC 7.7 (4.8-10.8) X10*3/uL RBC 5.00 (4.60-5.80) X10*6/uL Hgb 15.0 (14.0-18.0) g/dl Hct 44.2 (42.0-52.0) % MCV 88.4 (80.0-98.0) fL MCH 30.0 (27.0-33.0) pg MCHC 33.9 (31.0-36.0) g/dl RDW 12.2 (11.0-16.0) % Plt Count 299 D (160-400) X10*3/uL MPV 10.2 (9.4-12.4) fL Immature Gran % (Auto) 0.3 (0.0-0.4) % Neut % (Auto) 54.7 (45-73) % Lymph % (Auto) 37.1 (20-40) % [place] % (Auto) 6.5 (2-11) % Eos % (Auto) 1.0 (0-4) % Baso % (Auto) 0.4 (0-2) % Lymph # (Auto) 2.9 (1.2-4.9) X10*3/uL [place] # (Auto) 0.5 (0.1-1.2) X10*3/uL Eos # (Auto) 0.1 (0.0-0.4) X10*3/uL Baso # (Auto) 0.0 (0.0-0.2) X10*3/uL Abs Immat Gran (auto) 0.02 (0.00-0.03) X10*3/uL Absolute Neuts (auto) 4.2 (2.0-8.3) x10*3/uL Absolute Nucleated RBC 0.000 (0.0-0.012) X10*3/uL Nucleated RBC % (auto) 0.0 (0.0-0.2) /100WBC Sodium 140 (135-145) mmol/L Potassium 3.5 (3.3-5.1) mmol/L Chloride 102 (96-108) mmol/L Carbon Dioxide 29 (22-29) mmol/L Anion Gap 13 (12-20) BUN 12 (9-16) mg/dL Creatinine 1.06 (0.5-1.4) mg/dL Estim Creat Clear Calc 82.8 Estimated GFR > 60 Random Glucose 86 (60-115) mg/dL Calcium 10.0 D (8.4-10.2) mg/dL Magnesium 2.1 (1.6-2.6) mg/dL Total Bilirubin 0.3 (0.0-1.0) mg/dL AST 25 (5-37) U/L ALT 28 (0-40) U/L Alkaline Phosphatase 41 (39-117) U/L Total Protein 7.8 (6.5-8.0) g/dL Albumin 4.7 (3.5-5.0) g/dL Lipase 41 (8-78) U/L Independent Historian Clinical information obtained from an independent historian. History obtained from or confirmed by: Other (Staff) Prescription Management I considered prescription management with: Antiviral (See narrative above) Discharge Plan Discharge Clinical Impression: Exposure to body fluid due to accidental needlestick injury Patient Disposition: Home, Self-Care Instructions: Needle Stick Injuries (ED) Additional Instructions: Follow-up with work connection for further evaluation and treatment. You may return back to emergency department any new or worsening symptoms or concerns. Be sure to stay well hydrated, drink plenty of fluids Referrals: [facility] [Provider Group] Interventions: ED Discharge Assessment Last Done: 03/20/24 21:21 Discharge Date/Time: 03/20/24 21:22 Print Language: Moroccan
[2024-03-20 19:43] LABS: Alanine Aminotransferase 28 U/L (0-40); Albumin Level 4.7 g/dL (3.5-5.0); Alkaline Phosphatase 41 U/L (39-117); Anion Gap 13 (12-20); Aspartate Amino Transferase 25 U/L (5-37); Bilirubin Total 0.3 mg/dL (0.0-1.0); Blood Urea Nitrogen 12 mg/dL (9-16); Carbon Dioxide 29 mmol/L (22-29); Chloride 102 mmol/L (96-108); Creatinine Clr Calc Pharmacy 82.8; Estimated Glomerular Filt Rate > 60; Glucose Random 86 mg/dL (60-115); Lipase 41 U/L (8-78); Magnesium 2.1 mg/dL (1.6-2.6); Potassium 3.5 mmol/L (3.3-5.1); Sodium 140 mmol/L (135-145); Total Protein 7.8 g/dL (6.5-8.0)
[2024-03-20] MEDS: Post Exposure Medication Kit 1 KIT PO (20:48)
[2024-03-20 20:54] VITALS: BP 125/81; PULSE 69; RESP 20; TEMP 36.9; O2SAT 99
--- NOTE | 2024-03-20 21:20 | PC.NURSE ---
Reviewed discharge instructions with pt. pt verbalized understanding, no sign of distress
[2024-03-20 21:21] VITALS: BP 125/80; PULSE 69; RESP 20; TEMP 36.9; O2SAT 99
[2024-03-21 04:24] LABS: HBS Num1 > 1000.00 mIU/mL (0-7.99); HBc Num1 0.11 S/CO (0.00-0.79); HBsAGNum1 0.28 S/CO (0.00-0.99); HIV AB/AG Nonreactive (Nonreactive); HIV Num 1 0.05 S/CO (0.00-0.99); Hepatitis B Core Antibody Nonreactive (Nonreactive); Hepatitis B Surface Antigen Negative (Negative); ~Hepatitis B Surface Antibody REACTIVE (Nonreactive); ~Hepatitis C Antibody Nonreactive (Nonreactive)
[2024-03-21 05:03] LABS: Hepatitis A Antibody IgM 0.15 Index (0-0.79); ~Hepatitis A Antibody IgM Nonreactive (Nonreactive)
== END 2024-03-20 21:22 | disposition home or self-care (01) ==
PROVIDERS: Physician Assistant Medical; Emergency Provider Student in an Organized Health Care Education/Training Program; PCP Internal Medicine
DX: S61.432A Puncture wound without foreign body of left hand, initial encounter (principal); Y28.9XXA Contact with unspecified sharp object, undetermined intent, initial encounter; Y93.9 Activity, unspecified; Y92.9 Unspecified place or not applicable; Y99.8 Other external cause status; Z79.899 Other long term (current) drug therapy
CPT/HCPCS: 36415; 80053; 83690; 83735; 85025; 86704; 86706; 86709; 86803; 87340; 87389; 99283; 99284

== ENCOUNTER → 2024-03-21 10:35 | Outpatient (BNVA) | payer OTHER, SELFPAY | PROVIDERS: PCP Internal Medicine | DX: Z13.89 Encounter for screening for other disorder (principal) | CPT/HCPCS: 99203 ==

== ENCOUNTER → 2024-04-03 10:25 | Outpatient (BNVA) | payer OTHER, SELFPAY | PROVIDERS: PCP Internal Medicine | DX: Z13.89 Encounter for screening for other disorder (principal) | CPT/HCPCS: 82150; 82565; 84450; 84460; 85025; 99211 ==

== ENCOUNTER 2024-05-30 12:06 | Emergency (ER) | payer SELFPAY ==
[2024-05-30 12:15] VITALS: BP 127/68; PULSE 72; RESP 20; TEMP 36.7; O2SAT 98; BMI 27.5
--- NOTE | 2024-05-30 12:15 | ED.LOWEXIN ---
HPI - Extremity Injury (Lower) General Chief Complaint: Skin/Abscess/Foreign Body Stated Complaint: Foot infection Time Seen by Provider: 05/30/24 12:35 Source: patient Mode of arrival: ambulatory Limitations: no limitations History of Present Illness ED Provider: Magaly Hanna PA-C HPI Narrative: 44 yo male who presents to the ER for evaluation of a reddened area on his foot that started to spread up his leg after he popped a pus filled lesion between his 4th and 5th toes on the right foot. He just got back from a trip to [place] but denies injuring his foot, stepping on anything there. He reports a few days ago he noticed pain and swelling between the toes. It was white and tender. He popped it with a needle and yellow pus came out. Yesterday he noticed his foot started to get red. Today the redness spread up his lower leg and now all the way up his thigh. He noticed a knot in his right groin as well. No fever, chills, N/V/D, abdominal pain. No other rashes or lesions elsewhere on the body. MD complaint: foot injury Onset (ago): day(s) Type of Injury: unknown Relieving factors: nothing Exacerbating factors: nothing Associated symptoms: swelling and other (redness) Other symptoms: none Related Data Previous Rx's ?Medication ?Instructions ?Recorded cefpodoxime 200 mg tablet 200 mg PO BID #20 tabs 05/30/24 doxycycline hyclate 100 mg tablet 100 mg PO BID 10 days #20 tabs 05/30/24 ibuprofen 600 mg tablet 600 mg PO Q8H PRN fever or pain 05/30/24 #20 tabs Allergies Allergy/AdvReac Type Severity Reaction Status Date / Time amoxicillin [AMOXICILLIN] Allergy Unknown ANAPHYLAXIS Verified 05/30/24 12:17 morphine [Morphine] Allergy Unknown ANAPHYLAXIS Verified 05/30/24 12:17 Amoxicillin Allergy Unknown Unknown Uncoded 05/30/24 12:17 Morphine Sulfate Allergy Unknown Unknown Uncoded 05/30/24 12:17 Review of Systems Review of Systems: Yes all other systems are reviewed and are negative [facility] Past Medical History Medical History Kidney stones Social History Social History Household Members: Spouse Housing: Apartment Do you presently have visiting nurse or other home services: No Alcohol intake: never Patient Tobacco Use Status: Never used Tobacco Advance Directives: No service: No Current occupational status: employed Physical Exam Vital Signs: Vital Signs: Last Vital Signs Temp 98.1 F 05/30/24 12:15 Pulse 72 05/30/24 12:15 Resp 20 05/30/24 12:15 BP 127/68 05/30/24 12:15 Pulse Ox 98 05/30/24 12:15 O2 Del Method Room Air 05/30/24 12:15 BMI result Body Mass Index 27.5 Appearance: Alert. Oriented X3. No acute distress. Head: normocephalic, atraumatic. Eyes: Pupils equal, round and reactive to light. ENT: Pharynx normal. No tonsillar swelling or exudate. Neck: Normal inspection. Neck supple. CVS: Normal heart rate and rhythm. Pulses normal. Respiratory: No respiratory distress. Breath sounds normal. Abdomen: Soft and nontender. +BS x4 Skin: Skin warm and dry. Normal skin color. Normal skin turgor. No rashes. Extremities: No lower extremity edema. right foot with moderate generalized erythema and warmth on the top of the foot, starting proximally and ascending to the leg. there is a 2cm wide red streak that starts at the foot and extends on the top of the lower leg, to the right upper thigh. +1CM lymph node in the right groin. between toes 4 and 5 on the right foot there is a 1cm slit with macerated skin, no drainge Neuro/psych: Oriented X 3. No motor deficit. No sensory deficit. CN II-XII intact. Normal speech and cognition. Course Course Course Narrative: This is a Rapid Medical Exam performed in triage by Ana Mejia PA-C. Full HPI, ROS and PE to be performed by primary ED provider. 44 year-old w/ PMHx renal stones presenting to the ED c/o R foot ?pimple/pain which he poked with needle yesterday w/pus drainage, now w/erythema and warmth traveling to R groin. PE: R foot with erythema & lymphangitis traveling proximally Plan: labs, lactic, blood cx Medications Administered Discontinued Medications Generic Name Dose Route Start Last Admin Trade Name Freq PRN Reason Stop Dose Admin Sodium Chloride 1,000 mls @ 999 mls/hr 05/30/24 13:00 05/30/24 14:30 Ns IV 05/30/24 14:00 Infused .Q1H1M JESSICA Infusion Doxycycline Hyclate 100 mg/ 250 mls @ 166.67 mls/hr 05/30/24 13:03 05/30/24 14:06 Sodium Chloride IV 05/30/24 14:32 166.67 mls/hr ONCE ONE Administration Ceftriaxone Sodium 1 gm/ 50 mls @ 100 mls/hr 05/30/24 13:10 05/30/24 14:16 Sodium Chloride IV 05/30/24 13:39 Infused ONCE ONE Infusion Medical Decision Making Medical Decision Making [facility] Narrative: 44-year-old otherwise healthy male presents to the ER for evaluation of right foot redness with a red streak that travels up the leg to the proximal thigh. Started last night and has gotten worse. Occurred after he popped a pus-filled lesion between his toes a couple of days ago. Patient is afebrile, not tachycardic. He appears well, nontoxic appearing. Concern for lymphangitis. He appears well and there is low clinical suspicion for bacteremia at this time. Lab work shows no leukocytosis. Lactic acid is normal. Other lab works are unremarkable. He has no medical comorbidities. He was given 1 dose of IV Rocephin, tolerated well. Given dose of IV doxycycline as well. Will plan on double coverage and close monitoring as an outpatient. He was given strict return precautions and will return to the ER if he has new or worsening symptoms. Differential Diagnosis Differential Diagnoses: The differential diagnosis associated with the presentation includes Lymphangitis, cellulitis, herpes zoster, abscess, bacteremia Admission/Observation Consideration of admission/observation: Escalation of care including admission/observation considered considered admit for IV ABX, but labs and VS are stable. 1st does IV abx given in ER. Discussed with the attending physician Lab Data [facility] Lab Attestation statement: I reviewed the patient's lab results. no leukocytosis, lactic normal 05/30/24 12:29 05/30/24 12:29 Labs: Lab Results 05/30/24 Range/Units 12:29 WBC 7.4 (4.8-10.8) X10*3/uL RBC 4.79 (4.60-5.80) X10*6/uL Hgb 14.3 (14.0-18.0) g/dl Hct 41.8 L (42.0-52.0) % MCV 87.3 (80.0-98.0) fL MCH 29.9 (27.0-33.0) pg MCHC 34.2 (31.0-36.0) g/dl RDW 12.4 (11.0-16.0) % Plt Count 281 (160-400) X10*3/uL MPV 10.2 (9.4-12.4) fL Immature Gran % (Auto) 0.3 (0.0-0.4) % Neut % (Auto) 56.6 (45-73) % Lymph % (Auto) 31.8 (20-40) % [place] % (Auto) 9.4 (2-11) % Eos % (Auto) 1.5 (0-4) % Baso % (Auto) 0.4 (0-2) % Lymph # (Auto) 2.3 (1.2-4.9) X10*3/uL [place] # (Auto) 0.7 (0.1-1.2) X10*3/uL Eos # (Auto) 0.1 (0.0-0.4) X10*3/uL Baso # (Auto) 0.0 (0.0-0.2) X10*3/uL Abs Immat Gran (auto) 0.02 (0.00-0.03) X10*3/uL Absolute Neuts (auto) 4.2 (2.0-8.3) x10*3/uL Absolute Nucleated RBC 0.000 (0.0-0.012) X10*3/uL Nucleated RBC % (auto) 0.0 (0.0-0.2) /100WBC Sodium 141 (135-145) mmol/L Potassium 3.9 (3.3-5.1) mmol/L Chloride 103 (96-108) mmol/L Carbon Dioxide 27 (22-29) mmol/L Anion Gap 15 (12-20) BUN 18 H (9-16) mg/dL Creatinine 1.11 (0.5-1.4) mg/dL Estim Creat Clear Calc 79.1 Estimated GFR > 60 Random Glucose 95 (60-115) mg/dL Lactic Acid 0.8 (0.5-2.0) mmol/L Calcium 9.9 (8.4-10.2) mg/dL Total Bilirubin 0.7 (0.0-1.0) mg/dL Direct Bilirubin 0.2 (0.0-0.5) mg/dL AST 28 (5-37) U/L ALT 38 (0-40) U/L Alkaline Phosphatase 42 (39-117) U/L Total Protein 7.8 (6.5-8.0) g/dL Albumin 4.7 (3.5-5.0) g/dL External Record Review External record reviewed: Prior outpatient labs Tests considered The following testing was considered but not selected: Considered x-ray the foot to assess for foreign body however no evidence of this on examination. Prescription Management I considered prescription management with: Pain Medication and Antibiotic Critical Care Time Critical Care Time Critical Care Time: Yes Total Critical Care Time: 36 Attestation: I have personally provided critical care time exclusive of time spent on separately billable procedures. Time includes review of lab data, bedside reassessments, discussion with attending, and monitoring for potential decompensation. Intervention performed as documented. Discharge Plan Discharge Clinical Impression: Lymphangitis Patient Disposition: Home, Self-Care Instructions: Lymphangitis (ED) Additional Instructions: Take the prescribed antibiotics as directed, complete the entire course and do not miss any doses Use warm compresses to your foot. Soak your foot in warm soapy water twice per day. Your lab workup was unremarkable today If you develop new or worsening symptoms call 911 or come back to the ER for further evaluation. Prescriptions: New cefpodoxime 200 mg tablet 200 mg PO BID Qty: 20 0RF Rx Instructions: must administer with a meal/food doxycycline hyclate 100 mg tablet 100 mg PO BID 10 Days Qty: 20 0RF ibuprofen 600 mg tablet 600 mg PO Q8H PRN (Reason: fever or pain) Qty: 20 0RF Print Language: Frisian
[2024-05-30 12:34] LABS: MANUAL DIFF FLAG NO
[2024-05-30 12:36] LABS: Basophils Percent Auto 0.4 % (0-2); Eosinophils Absolute Auto 0.1 X10*3/uL (0.0-0.4); Eosinophils Percent Auto 1.5 % (0-4); Hematocrit 41.8 % (42.0-52.0); Hemoglobin 14.3 g/dl (14.0-18.0); Imm Gran Abs Auto 0.02 X10*3/uL (0.00-0.03); Imm Gran Pct Auto 0.3 % (0.0-0.4); Lymphocytes Absolute Auto 2.3 X10*3/uL (1.2-4.9); Lymphocytes Percent Auto 31.8 % (20-40); Mean Corpuscular HGB Conc 34.2 g/dl (31.0-36.0); Mean Corpuscular Hemoglobin 29.9 pg (27.0-33.0); Mean Corpuscular Volume 87.3 fL (80.0-98.0); Mean Platelet Volume 10.2 fL (9.4-12.4); Monocytes Absolute Auto 0.7 X10*3/uL (0.1-1.2); Monocytes Percent Auto 9.4 % (2-11); Neutrophils Absolute Auto 4.2 x10*3/uL (2.0-8.3); Neutrophils Percent Auto 56.6 % (45-73); Platelet Count 281 X10*3/uL (160-400); Red Blood Count 4.79 X10*6/uL (4.60-5.80); Red Cell Distribution Width 12.4 % (11.0-16.0); White Blood Count 7.4 X10*3/uL (4.8-10.8)
[2024-05-30 12:46] LABS: Lactic Acid 0.8 mmol/L (0.5-2.0)
[2024-05-30 12:50] LABS: Alanine Aminotransferase 38 U/L (0-40); Albumin Level 4.7 g/dL (3.5-5.0); Alkaline Phosphatase 42 U/L (39-117); Anion Gap 15 (12-20); Aspartate Amino Transferase 28 U/L (5-37); Bilirubin Direct 0.2 mg/dL (0.0-0.5); Bilirubin Total 0.7 mg/dL (0.0-1.0); Blood Urea Nitrogen 18 mg/dL (9-16); Calcium 9.9 mg/dL (8.4-10.2); Carbon Dioxide 27 mmol/L (22-29); Chloride 103 mmol/L (96-108); Creatinine Clr Calc Pharmacy 79.1; Estimated Glomerular Filt Rate > 60; Glucose Random 95 mg/dL (60-115); Potassium 3.9 mmol/L (3.3-5.1); Sodium 141 mmol/L (135-145); Total Protein 7.8 g/dL (6.5-8.0)
[2024-05-30] MEDS: 0.9 % Sodium Chloride 1,000 ML 999 ML IV (13:20)
[2024-05-30] MEDS: cefTRIAXone sodium 1 GM in 0.9 % Sodium Chloride 50 ML IV (13:21)
[2024-05-30] MEDS: Doxycycline Hyclate 100 MG in 0.9 % Sodium Chloride 250 ML 166.67 MG IV (14:06)
[2024-05-30 16:15] VITALS: BP 127/68; PULSE 72; RESP 20; TEMP 36.7; O2SAT 98
== END 2024-05-30 16:15 | disposition home or self-care (01) ==
PROVIDERS: Physician Assistant; Emergency Provider Emergency Medicine Emergency Medical Services
DX: I89.1 Lymphangitis (principal); M79.671 Pain in right foot
CPT/HCPCS: 36415; 80048; 80076; 83605; 85025; 87040; 96361; 96365; 96366; 96375; 99283; 99284; J0696

== ENCOUNTER 2024-12-06 07:39 | Emergency (ER) | payer SELFPAY ==
[2024-12-06 07:46] VITALS: BP 112/61; PULSE 85; RESP 16; TEMP 37.2; O2SAT 99; BMI 29.1
--- NOTE | 2024-12-06 08:10 | ED.GENADULT ---
HPI - General Adult General Chief complaint: General Medical Stated complaint: sick Time Seen by Provider: 12/06/24 07:52 Source: patient and old records reviewed Mode of arrival: ambulatory Limitations: no limitations History of Present Illness ED Provider: ALESSIA JURADO narrative: 44 yo male with PMH of asthma here with c/o waking up feeling sick, cough, burning chest when he coughs, body aches and just not himself. He went to bed fine. 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 He has not had a fever. He didn't take meds this AM complaint: viral syndrome Onset (ago): hour(s) (few) Location: chest, left, right, upper extremity and lower extremity Radiation: non-radiation Severity: moderate Quality: aching Pain Consistency: constant Relieving factors: immobilization Exacerbating factors: none Associated symptoms: cough, weakness and other (body aches) Treatments prior to arrival: none Related Data Previous Rx's ?Medication ?Instructions ?Recorded cefpodoxime 200 mg tablet 200 mg PO BID #20 tabs 05/30/24 doxycycline hyclate 100 mg tablet 100 mg PO BID 10 days #20 tabs 05/30/24 ibuprofen 600 mg tablet 600 mg PO Q8H PRN fever or pain 05/30/24 #20 tabs ondansetron 4 mg disintegrating 4 mg PO Q8H PRN nausea and 12/06/24 tablet vomiting #20 tabs oseltamivir 75 mg capsule (Tamiflu) 75 mg PO BID 5 days #10 caps 12/06/24 prednisone 20 mg tablet 40 mg (2 x 20 mg) PO DAILY 5 days 12/06/24 #10 tabs Allergies Allergy/AdvReac Type Severity Reaction Status Date / Time amoxicillin [AMOXICILLIN] Allergy Unknown ANAPHYLAXIS Verified 12/06/24 07:47 morphine [Morphine] Allergy Unknown ANAPHYLAXIS Verified 12/06/24 07:47 Amoxicillin Allergy Unknown Unknown Uncoded 12/06/24 07:47 Morphine Sulfate Allergy Unknown Unknown Uncoded 12/06/24 07:47 Review of Systems Review of Systems: Constitutional : No Fever, No Chills, pos Fatigue ENT/Mouth : No sore throat, No Rhinorrhea Eyes: No Eye Pain, No Swelling, No Redness Cardiovascular : No Chest Pain, No SOB, No Dyspnea on Exertion Respiratory : pos Cough, No Sputum Gastrointestinal : No Nausea, No Vomiting, No Diarrhea, No abdominal Pain Genitourinary : No Dysuria, No Urinary Frequency, No Hematuria, Musculoskeletal : No joint pain, pos Myalgias, No Joint Swelling Skin : No Skin Lesions, No rash Neuro : No Weakness, No Numbness, pos Dizziness, no Headache Psych : No Anxiety/Panic, No Depression All other systems reviewed and are negative [facility] Past Medical History Attestation statement: The following information was validated with the patient. Source: old records reviewed Medical History Kidney stones Social History Social History Household Members: Spouse Housing: Apartment Do you presently have visiting nurse or other home services: No Alcohol intake: never Patient Tobacco Use Status: Never used Tobacco Advance Directives: Yes Advance Directives on File: Yes Advance Directives Date on File: 01/26/23 Do you have a plan to hurt others: No Plan service: No Current occupational status: employed Physical Exam ED Vital Signs: Vital Signs - 24 hr 12/06/24 07:46 Temperature 98.9 F Pulse Rate 85 Respiratory Rate 16 Blood Pressure 112/61 Pulse Oximetry 99 Oxygen Delivery Method Room Air BMI result Body Mass Index 29.1 Appearance: Alert. Oriented X3. No acute distress. Eyes: Pupils equal, round and reactive to light. ENT: Pharynx normal. Neck: Normal inspection. Neck supple. CVS: Normal heart rate and rhythm. Pulses normal. Respiratory: No respiratory distress. Breath sounds normal. Abdomen: Soft and nontender. Skin: Skin warm and dry. Normal skin color. Normal skin turgor. Extremities: No lower extremity edema. No calf ttp Neuro: Oriented X 3. No motor deficit. No sensory deficit. CN2-12 intact Medications Administered Discontinued Medications Generic Name Dose Route Start Last Admin Trade Name Freq PRN Reason Stop Dose Admin Ibuprofen 600 mg 12/06/24 08:11 12/06/24 08:30 Ibuprofen 600 Mg Tablet PO 12/06/24 08:12 600 mg ONCE ONE Administration Medical Decision Making Medical Decision Making [facility] Narrative: 44 yo male with PMH of asthma here with c/o body aches, not feeling well, chills, weak starting this AM at this time VS stable, no productive cough no fevers and clear lungs will obtain viral panel given his exposures and start on motrin. Differential Diagnosis Differential Diagnoses: The differential diagnosis associated with the presentation includes URI, viral syndrome Admission/Observation Consideration of admission/observation: Escalation of care including admission/observation considered not toxic stable for DC Lab Data [facility] Lab Attestation statement: I reviewed the patient's lab results. Labs: Lab Results 12/06/24 Range/Units 07:55 Influenza Type A (PCR) POSITIVE A (Negative) Influenza Type B (PCR) NEGATIVE (Negative) RSV RNA Qual (PCR) NEGATIVE (Negative) SARS-CoV-2 RNA (RT-PCR) NEGATIVE (Negative) External Record Review External record reviewed: Outpatient record Prescription Management I considered prescription management with: Other Discharge Plan Discharge Clinical Impression: Influenza A Patient Disposition: Home, Self-Care Instructions: Influenza (ED) Additional Instructions: return for worsening symptoms unable to eat or drink use your inhalers as needed Prescriptions: New prednisone 20 mg tablet 40 mg PO DAILY 5 Days Qty: 10 0RF ondansetron 4 mg tablet,disintegrating 4 mg PO Q8H PRN (Reason: nausea and vomiting) Qty: 20 0RF oseltamivir [Tamiflu] 75 mg capsule 75 mg PO BID 5 Days Qty: 10 0RF No Action cefpodoxime 200 mg tablet 200 mg PO BID Qty: 20 0RF Rx Instructions: must administer with a meal/food doxycycline hyclate 100 mg tablet 100 mg PO BID 10 Days Qty: 20 0RF ibuprofen 600 mg tablet 600 mg PO Q8H PRN (Reason: fever or pain) Qty: 20 0RF Stand Alone Forms: Work/School Release Print Language: Hungarian
[2024-12-06] MEDS: Ibuprofen 600 MG TABLET PO (08:30)
[2024-12-06 08:45] LABS: Influenza A PCR POSITIVE (Negative); Influenza B PCR NEGATIVE (Negative); Resp Syncy Virus RNA Qual PCR NEGATIVE (Negative); SARS COV2 PCR INHOUSE NEGATIVE (Negative)
[2024-12-06 09:13] VITALS: BP 112/61; PULSE 85; RESP 16; TEMP 37.2; O2SAT 99
--- NOTE | 2024-12-06 09:14 | PC.NURSE ---
PT STATES HE SRTARTED NOT FEELING WELL THIS AM. RESP WITH ACUTE DISTRESS, NO VOMITING, RPORTS BODYACHES AND HEADACHE, HE WAS MEDICATED CHARTED FOR SXS. LABS REVEAL HE IS FLU + PLAN FOR DISCHARGE AND FOLLOW UP RECOMMENDED. WORK NOTE GIVEN
== END 2024-12-06 09:16 | disposition home or self-care (01) ==
PROVIDERS: Emergency Provider Emergency Medicine
DX: J10.1 Influenza due to other identified influenza virus with other respiratory manifestations (principal); R05.9 Cough, unspecified; M79.10 Myalgia, unspecified site; Z03.818 Encounter for observation for suspected exposure to other biological agents ruled out
CPT/HCPCS: 0241U; 99283

== ENCOUNTER 2025-02-08 14:53 | Emergency (ER) | payer SELFPAY ==
--- NOTE | ~2025-02-08 | XR_ITS ---
CLINICAL HISTORY: cp 2 view chest x-ray. Comparison: None Findings: The width of the mediastinum is normal. Heart size normal. Pulmonary vasculature is normal. No acute fracture. Impression: Lungs are clear. This document has been electronically signed by: Dar Faulkner MD on 02/08/2025 16:10:19
[2025-02-08 15:01] VITALS: BP 123/71; PULSE 69; RESP 19; TEMP 36.8; BMI 29.5
--- NOTE | 2025-02-08 15:22 | ECG_ITS ---
Test Reason : CHEST PAIN Blood Pressure : */* mmHG Vent. Rate : 60 BPM Atrial Rate : 60 BPM P-R Int : 144 ms QRS Dur : 88 ms QT Int : 370 ms P-R-T Axes : 14 -7 -5 degrees QTcB Int : 370 ms Normal sinus rhythm with sinus arrhythmia Minimal voltage criteria for LVH, may be normal variant ( R in aVL ) Septal infarct , age undetermined Abnormal ECG No previous ECGs available Referred By: Bernice Valle Electronically Signed By: MELIZA CRUZ MD
[2025-02-08 15:23] LABS: MANUAL DIFF FLAG NO
--- NOTE | 2025-02-08 15:23 | ED_ITS ---
HPI - Chest Pain General Chief Complaint: Chest Pain Stated Complaint: CP Time Seen by Provider: 02/08/25 15:21 Source: patient Mode of arrival: ambulatory Limitations: no limitations History of Present Illness ED Provider: SHEFALI BENNETT PA-C HPI narrative: 45 year old male with no significant pmhx presents to the ED today for evaluation of left sided chest pain that began after eating lunch today. Pain is localized to the left side of his chest. Describes the pain as sharp and stabbing in character. Pain is worse with movement of the left arm. Pain is not exertional. Reports similar pain yesterday which lasted for about an hour before resolving without intervention. Denies personal or familial cardiac history. Denies any sudden cardiac deaths in the family. Denies hx VTE. Denies any recent heavy lifting. Denies recent travel or long car rides. Denies blunt trauma or injury to the chest. Denies recent upper respiratory symptoms. Denies fever, chills, SOB, wheezing, leg pain/swelling, N/V. Related Data Previous Rx's ?Medication ?Instructions ?Recorded cefpodoxime 200 mg tablet 200 mg PO BID #20 tabs 05/30/24 doxycycline hyclate 100 mg tablet 100 mg PO BID 10 days #20 tabs 05/30/24 ibuprofen 600 mg tablet 600 mg PO Q8H PRN fever or pain 05/30/24 #20 tabs ondansetron 4 mg disintegrating 4 mg PO Q8H PRN nausea and 12/06/24 tablet vomiting #20 tabs oseltamivir 75 mg capsule (Tamiflu) 75 mg PO BID 5 days #10 caps 12/06/24 prednisone 20 mg tablet 40 mg (2 x 20 mg) PO DAILY 5 days 12/06/24 #10 tabs Allergies Allergy/AdvReac Type Severity Reaction Status Date / Time amoxicillin [AMOXICILLIN] Allergy Unknown ANAPHYLAXIS Verified 02/08/25 15:03 morphine [Morphine] Allergy Unknown ANAPHYLAXIS Verified 02/08/25 15:03 Amoxicillin Allergy Unknown Unknown Uncoded 02/08/25 15:03 Morphine Sulfate Allergy Unknown Unknown Uncoded 02/08/25 15:03 Review of Systems 2 Review of Systems: Constitutional: No fever, chills, fatigue, night sweats, weight changes ENT/Mouth: No ear pain, hearing loss, nasal congestion, sinus pain, rhinorrhea, sore throat Eyes: No eye pain, swelling, redness, vision changes, discharge Cardio: No chest pain, palpitations, GEORGE, orthopnea, peripheral edema, +chest pain Pulm: No SOB, cough, sputum, wheezing, dyspnea, hemoptysis GI: No nausea, vomiting, hematemesis, abdominal pain, diarrhea, constipation, hematochezia, melena : No irregular bleeding, dysuria, frequency, urgency, hesitancy, hematuria, flank pain, urinary flow changes, urinary incontinence or retention MSK: No back pain, neck pain, joint pain, myalgias Skin: No lesions, rashes Neuro: No weakness, numbness, paresthesias, LOC, dizziness, headache Psych: No anxiety/panic, depression, SI/HI, AH/VH All other systems reviewed and are negative. [facility] Past Medical History Attestation statement: The following information was validated with the patient. Source: old records reviewed and nursing notes reviewed Medical History Kidney stones Social History Social History Household Members: Spouse Housing: Apartment Do you presently have visiting nurse or other home services: No Alcohol intake: never Patient Tobacco Use Status: Never used Tobacco Advance Directives: Yes Advance Directives on File: Yes Advance Directives Date on File: 01/26/23 Do you have a plan to hurt others: No Plan service: No Current occupational status: employed Physical Exam 2 Vital Signs: Vital Signs: Last Vital Signs Temp 98.0 F 02/08/25 18:23 Pulse 60 02/08/25 18:23 Resp 20 02/08/25 18:23 BP 123/79 02/08/25 18:23 Pulse Ox 100 02/08/25 18:23 O2 Del Method Room Air 02/08/25 18:23 BMI result Body Mass Index 29.5 Vital signs stable. Not tachycardic or hypoxic. Afebrile. General: Well appearing, in no acute distress. Skin: Warm, dry, intact. No rashes or lesions. Head: Normocephalic, atraumatic. EENT: Hearing is intact b/l. Conjunctiva clear. EOM intact. Moist mucous membranes.? Cardiac: Chest wall symmetric. RRR. Reproducible tenderness to palpation of left anterior chest wall. No palpable deformity or crepitus. Lungs: Normal respiratory effort without accessory muscle use. CTA bilaterally. No rales, rhonchi, or wheezes.? Abdomen: Soft, non-tender, non-distended. No rebound tenderness or guarding Ext: Upper and lower extremities atraumatic, without tenderness, deformity, swelling or erythema. no calf tenderness. Neuro: AOx3. Normal speech. Ambulating with steady gait. Psych: Appropriate mood and affect. Responds appropriately to questions. Course Course Course Narrative: 1619 -- CBC without leukocytosis or left shift. no anemia. h&h stable. chemistry without acute electrolyte abnormality requiring intervention. no BOLA. troponin wnl. given timing of pain to presentation, will repeat for delta. EKG without ischemic changes or ST elevations. cxr without infiltrate or consolidation. no effusion. 1800 -- delta troponin flat. Patient states his pain has significantly improved with Toradol. Given improvement with NSAIDs and reproducibility, likely musculoskeletal in etiology. advised NSAIDs at home. Patient has remained stable throughout ED visit today. Discussed worrisome signs and symptoms and when to return to the ED. All questions answered at this time. Patient is agreeable with disposition and stable for discharge. Medications Administered Discontinued Medications Generic Name Dose Route Start Last Admin Trade Name Freq PRN Reason Stop Dose Admin Ketorolac Tromethamine 30 mg 02/08/25 15:57 02/08/25 16:03 Ketorolac Tromethamine 30 Mg/Ml Vial IM 02/08/25 15:58 30 mg ONCE ONE Administration Medical Decision Making Medical Decision Making [facility] Narrative: 45 year old male presents with chest pain, with symptoms suggestive of noncardiac chest pain.? Vital stable. Not hypoxic or tachycardic. Afebrile. History without high risk features (not substernal, no exertional component, not relieved with rest).? Minimal CAD risk factors (including age). ? Exam without evidence of volume overload. EKG without signs of active ischemia. HEART score: 0. Given the timing of pain to ED presentation, plan to send delta troponin to evaluate for NSTEMI. Differential diagnosis also includes anemia, electrolyte abnormality, costochondritis, msk pain, pneumonia, pleurisy. Presentation not consistent with acute PE (PERC 0), pneumothorax, thoracic aortic dissection, cardiac effusion or tamponade, myocarditis, pericarditis. Plan: labs, troponin, EKG, CXR, pain control, reassessment Differential Diagnosis Differential Diagnoses: The differential diagnosis associated with the presentation includes as above. Admission/Observation not indicated. Lab Data MDM Lab Attestation statement: I reviewed the patient's lab results. as above. 02/08/25 15:14 02/08/25 15:14 Labs: Lab Results 02/08/25 02/08/25 Range/Units 15:14 17:41 WBC 7.6 (4.8-10.8) X10*3/uL RBC 4.90 (4.60-5.80) X10*6/uL Hgb 14.5 (14.0-18.0) g/dl Hct 41.9 L (42.0-52.0) % MCV 85.5 (80.0-98.0) fL MCH 29.6 (27.0-33.0) pg MCHC 34.6 (31.0-36.0) g/dl RDW 12.9 (11.0-16.0) % Plt Count 311 (160-400) X10*3/uL MPV 10.2 (9.4-12.4) fL Immature Gran % (Auto) 0.3 (0.0-0.4) % Neut % (Auto) 57.0 (45-73) % Lymph % (Auto) 33.8 (20-40) % [place] % (Auto) 6.9 (2-11) % Eos % (Auto) 1.6 (0-4) % Baso % (Auto) 0.4 (0-2) % Lymph # (Auto) 2.6 (1.2-4.9) X10*3/uL [place] # (Auto) 0.5 (0.1-1.2) X10*3/uL Eos # (Auto) 0.1 (0.0-0.4) X10*3/uL Baso # (Auto) 0.0 (0.0-0.2) X10*3/uL Abs Immat Gran (auto) 0.02 (0.00-0.03) X10*3/uL Absolute Neuts (auto) 4.3 (2.0-8.3) x10*3/uL Absolute Nucleated RBC 0.000 (0.0-0.012) X10*3/uL Nucleated RBC % (auto) 0.0 (0.0-0.2) /100WBC Sodium 139 (135-145) mmol/L Potassium 3.8 (3.3-5.1) mmol/L Chloride 103 (96-108) mmol/L Carbon Dioxide 29 (22-29) mmol/L Anion Gap 11 L (12-20) BUN 19 H (9-16) mg/dL Creatinine 1.28 (0.5-1.4) mg/dL Estim Creat Clear Calc 70.2 Estimated GFR > 60 Random Glucose 94 (60-115) mg/dL Calcium 9.7 (8.4-10.2) mg/dL Troponin I High Sens 3.0 < 2.7 (<3.5-35.0) ng/L Independent Interpretation I performed an independent interpretation of an: EKG and Plain X-Ray Interpretation: ekg showing normal sinus rhythm with sinus arrhythmia, rate of 60 beats per minute, QT 370, QTC 370, no acute ischemic changes or ST elevations chest xray without infiltrate or consolidation Radiology Impression Discussion of test interpretation with radiology: I have reviewed the radiologist's reading. Radiologist Impression: Date of Service: 02/08/25 Procedure(s): XR chest 2V Accession Number(s): [id number] cc: Physician,Unknown ; Kamron Richter MD~ CLINICAL HISTORY: cp 2 view chest x-ray. Comparison: None Findings: The width of the mediastinum is normal. Heart size normal. Pulmonary vasculature is normal. No acute fracture. Impression: Lungs are clear. This document has been electronically signed by: Dar Faulkner MD on 02/08/2025 16:10:19 External Record Review External record reviewed: Inpatient record Prescription Management I considered prescription management with: Pain Medication Social Determinants Patient?s care significantly limited by Social Determinants of Health including: Other Social Determinant of Health Critical Care Time Critical Care Time Critical Care Time: No Discharge Plan Discharge Clinical Impression: Atypical chest pain Patient Disposition: Home, Self-Care Instructions: Chest Pain (ED), Chest Wall Pain (ED) Additional Instructions: You were evaluated in the Emergency Department today for chest pain. Your evaluation has shown no signs of medical conditions requiring emergent intervention at this time. I recommend that you follow up with your primary care provider or your maintenance supervisor electrical as soon as possible for further testing as an outpatient. If you do not have one, a referral has been provided. Please call them to make an appointment, they will not call you. Return to the Emergency Department if you experience worsening or uncontrolled chest pain, shortness of breath, light headedness, feeling faint, nausea, vomiting, or any other concerning symptoms. Prescriptions: No Action prednisone 20 mg tablet 40 mg PO DAILY 5 Days Qty: 10 0RF ondansetron 4 mg tablet,disintegrating 4 mg PO Q8H PRN (Reason: nausea and vomiting) Qty: 20 0RF oseltamivir [Tamiflu] 75 mg capsule 75 mg PO BID 5 Days Qty: 10 0RF cefpodoxime 200 mg tablet 200 mg PO BID Qty: 20 0RF Rx Instructions: must administer with a meal/food doxycycline hyclate 100 mg tablet 100 mg PO BID 10 Days Qty: 20 0RF ibuprofen 600 mg tablet 600 mg PO Q8H PRN (Reason: fever or pain) Qty: 20 0RF Stand Alone Forms: Work/School Release Interventions: ED Discharge Assessment Last Done: 02/08/25 18:23 Discharge Date/Time: 02/08/25 18:23 Print Language: Luxembourgish
[2025-02-08 15:27] LABS: Basophils Percent Auto 0.4 % (0-2); Eosinophils Absolute Auto 0.1 X10*3/uL (0.0-0.4); Eosinophils Percent Auto 1.6 % (0-4); Hematocrit 41.9 % (42.0-52.0); Hemoglobin 14.5 g/dl (14.0-18.0); Imm Gran Abs Auto 0.02 X10*3/uL (0.00-0.03); Imm Gran Pct Auto 0.3 % (0.0-0.4); Lymphocytes Absolute Auto 2.6 X10*3/uL (1.2-4.9); Lymphocytes Percent Auto 33.8 % (20-40); Mean Corpuscular HGB Conc 34.6 g/dl (31.0-36.0); Mean Corpuscular Hemoglobin 29.6 pg (27.0-33.0); Mean Corpuscular Volume 85.5 fL (80.0-98.0); Mean Platelet Volume 10.2 fL (9.4-12.4); Monocytes Absolute Auto 0.5 X10*3/uL (0.1-1.2); Monocytes Percent Auto 6.9 % (2-11); Neutrophils Absolute Auto 4.3 x10*3/uL (2.0-8.3); Platelet Count 311 X10*3/uL (160-400); Red Cell Distribution Width 12.9 % (11.0-16.0); White Blood Count 7.6 X10*3/uL (4.8-10.8)
[2025-02-08 15:37] LABS: Anion Gap 11 (12-20); Blood Urea Nitrogen 19 mg/dL (9-16); Calcium 9.7 mg/dL (8.4-10.2); Carbon Dioxide 29 mmol/L (22-29); Chloride 103 mmol/L (96-108); Creatinine Clr Calc Pharmacy 70.2; Estimated Glomerular Filt Rate > 60; Glucose Random 94 mg/dL (60-115); Potassium 3.8 mmol/L (3.3-5.1); Sodium 139 mmol/L (135-145)
[2025-02-08] MEDS: Ketorolac Tromethamine 30 MG/ML VIAL IM (16:03)
[2025-02-08 16:30] VITALS: BP 112/70; PULSE 65; RESP 19; TEMP 36.8; O2SAT 99
[2025-02-08 18:06] LABS: Troponin-I High Sensitivity < 2.7 ng/L (<3.5-35.0)
[2025-02-08 18:10] VITALS: BP 96/69; PULSE 53; RESP 16; TEMP 36.5; O2SAT 99
[2025-02-08 18:19] VITALS: BP 123/79; PULSE 60; RESP 20; TEMP 36.7; O2SAT 100
[2025-02-08 18:23] VITALS: BP 123/79; PULSE 60; RESP 20; TEMP 36.7; O2SAT 100
== END 2025-02-08 18:23 | disposition home or self-care (01) ==
PROVIDERS: Physician Assistant Medical; Emergency Provider Internal Medicine
DX: R07.89 Other chest pain (principal); I49.8 Other specified cardiac arrhythmias; R94.31 Abnormal electrocardiogram [ECG] [EKG]
CPT/HCPCS: 36415; 71046; 80048; 84484; 85025; 93005; 96372; 99284; 99285; J1885

== ENCOUNTER → 2025-02-08 15:07 | Outpatient (BNV) | payer SELFPAY | PROVIDERS: Emergency Provider Internal Medicine; Visit Provider Radiology Diagnostic Radiology | DX: R07.9 Chest pain, unspecified (principal) | CPT/HCPCS: 71046 ==

== ENCOUNTER → 2025-02-08 15:22 | Outpatient (BNV) | payer SELFPAY | PROVIDERS: Emergency Provider Internal Medicine; Visit Provider Internal Medicine Cardiovascular Disease | DX: I49.9 Cardiac arrhythmia, unspecified (principal) | CPT/HCPCS: 93010 ==